=== PATIENT | female | born 1935 | race Caucasian/White ===

== ENCOUNTER → 2019-04-07 | Outpatient (CLI) | payer MEDICARE, OTHER, SELFPAY ==
[2019-04-07 14:57] LABS: Mucous, Urine 0 SEEN /hpf (<or=2+); Red Blood Cells-Urine 0 SEEN /hpf (0-5); Squamous Epithelial Cells - UA 0 SEEN /hpf (5-10)
[2019-04-07 17:30] LABS: Color, Urine Yellow (Yellow); Glucose, Dipstick Normal (Normal); Ketone-Dipstick Negative (Negative); Leukocyte Esterase-Dipstick 500 /ul (Negative); Nitrite-Dipstick Negative (Negative); Occult Blood-Urine 10 /ul (Negative); Protein-Dipstick Negative (Negative); Specific Gravity, Urine 1.015 (1.002-1.030); Urine Bilirubin Dipstick Negative (Negative); Urine Clarity Sl. Cloudy (Clear); Urine Urobilinogen Normal (Normal)
[2019-04-07 17:37] LABS: Bacteria 1+ /hpf (None Seen); White Blood Cells 50-100 SEEN /hpf (0-5)
== END | disposition home or self-care (01) ==
LOC: BFHLAB 14:55
PROVIDERS: Family Provider Family Medicine; PCP Family Medicine; Visit Provider Family Medicine
DX: R30.9 Painful micturition, unspecified (principal)
CPT/HCPCS: 81001; 87086; 87088; 87186

== ENCOUNTER → 2019-05-18 | Outpatient (CLI) | payer MEDICARE, OTHER, SELFPAY ==
[2015-05-24 20:11] VITALS: BMI 25.7
[2019-05-18 12:51] LABS: Absolute Lymphocyte Count 1.11 X10^3/uL (0.83-4.51); Absolute Neutrophil Count 2.9 X10^3/uL (2.0-7.7); Basophil# 0.03 X10^3/uL; Basophil% 0.7 % (0-1); Eosinophil# 0.12 X10^3/uL; Eosinophils% 2.6 % (0-5); Hematocrit 35.6 % (37-47); Hemoglobin 11.1 g/dL (12.0-15.0); Lymphocyte # 1.11 X10^3/ul (4.0); Lymphocyte % 24.4 % (19-41); Mean Corp Hgb Conc 31.2 g/dL (32-36); Mean Corpuscular Hgb 27.9 pg (27.0-32.0); Mean Corpuscular Volume 89.4 fL (81-99); Mean Platelet Vol. 11.4 fl (6.2-12.0); Monocyte# 0.41 X10^3/uL; NRBC Flagged by Analyzer 0 % (0-5); Neutrophil # 2.87 X10^3/uL (2.7-7.7); Neutrophil % 63.1 % (47-70); Platelet Count 218 K/mm3 (150-450); RBC Distribution Width CV 13.7 % (11.6-14.6); RBC Distribution Width SD 44.7 fl (35.1-43.9); Red Blood Count 3.98 M/mm3 (4.2-5.4); White Blood Count 4.6 K/mm3 (4.4-11.0)
[2019-05-18 13:06] LABS: ALB/GLOB Ratio 0.9 RATIO (0.9-2.4); AST(SGOT) 17 U/L (15-37); Alanine Aminotransfer ALT/SGPT 17 U/L (13-56); Albumin, Serum 3.4 g/dL (3.2-5.0); Alkaline Phosphatase 73 U/L (45-117); Anion Gap 5 (5-15); BUN 34 mg/dL (7-18); Calcium,Total 8.7 mg/dL (8.5-10.1); Chloride 104 mmol/L (98-107); Creatinine, Serum 1.31 mg/dL (0.55-1.02); EST Glomerular Filtration Rate 41 mL/min (>60); Est Glom Filt Rate - Afr Amer 50 mL/min (>60); Ferritin 40 ng/mL (8-252); Globulin 3.6 g/dL (2.2-4.2); Glucose 92 mg/dL (74-106); Iron 70 ug/dL (50-170); Potassium 4.3 mmol/L (3.5-5.1); Sodium Level 137 mmol/L (136-145)
== END | disposition home or self-care (01) ==
LOC: BFHLAB 09:58
PROVIDERS: Family Provider Family Medicine; PCP Family Medicine; Visit Provider Family Medicine
DX: D50.9 Iron deficiency anemia, unspecified (principal); N18.3 Chronic kidney disease, stage 3 (moderate)
CPT/HCPCS: 36415; 80053; 82728; 83540; 85025

== ENCOUNTER → 2020-11-11 14:44 | Outpatient (CLI) | payer MEDICARE, OTHER, SELFPAY ==
[2015-05-24 20:11] VITALS: BMI 25.7
--- NOTE | 2020-11-11 14:50 | RAD_ITS ---
STUDY: X-RAY - UNILATERAL RIBS ( RIGHT ) WITH CHEST REASON FOR EXAM: Female, 85 years old. Pt fell yesterday, right lateral lower rib pain TECHNIQUE - RIBS: 2 view(s) of the ribs. TECHNIQUE - CHEST: Single PA view of the chest. COMPARISON: Comparison is made with prior study dated 09/23/2014. FINDINGS - RIBS: Normal visualized ribs without a demonstrated fracture. FINDINGS - CHEST: Hyperinflation. The lungs are clear. There is no demonstrated pleural abnormality. Normal size heart. Normal mediastinum and yas. Normal visualized pulmonary arteries. There is atherosclerotic calcification of the aortic arch with tortuosity. There are diffuse degenerative changes of the visualized thoracic spine. Dextroscoliosis. Normal visualized ribs, clavicles, and shoulders. There is no demonstrated abnormality of the visualized soft tissue structures of the upper abdomen. RAD/Ribs Uni Min 3V w/PA Chest IMPRESSION: RIBS: Normal x-ray examination of the ribs. CHEST: Hyperinflation. The lungs are clear. Electronically Signed: Keagan Raymundo MD at 15:26 EST , Service support ,
--- NOTE | 2020-11-11 14:50 | RAD_ITS ---
STUDY: X-RAY - LEFT WRIST REASON FOR EXAM: Female, 85 years old. Pt fell yesterday, left wrist pain swelling TECHNIQUE: 3 view(s) of the wrist were obtained. COMPARISON: None. FINDINGS: Normal visualized distal radius and ulna. Normal radiocarpal articulation. Normal distal radioulnar articulation. Normal carpal bones. Normal carpal articulations. Normal carpometacarpal articulation of the thumb. Normal second through fifth carpometacarpal articulations. 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 Soft tissue swelling. RAD/Wrist min 3 Views IMPRESSION: Soft tissue swelling. Electronically Signed: Keagan Raymundo MD at 15:22 EST , Service support ,
--- NOTE | 2020-11-11 14:50 | RAD_ITS ---
STUDY: X-RAY - LEFT HAND REASON FOR EXAM: Female, 85 years old. Pt fell yesterday, swelling and redness left hand -- unable to remove ring TECHNIQUE: 3 view(s) of the hand. COMPARISON: None. FINDINGS: Normal radiocarpal articulation. Normal distal radioulnar joint. Normal visualized carpal bones. Normal carpal articulations Normal carpometacarpal articulation of the thumb. Normal second through fifth carpometacarpal joints. 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 Normal metacarpophalangeal joint of the thumb. Normal interphalangeal joint of the thumb. Normal proximal and distal phalanges of the thumb. Normal metacarpophalangeal joints of the second through fifth fingers. Normal proximal and distal interphalangeal joints of the second through fifth fingers. Normal phalanges of the second through fifth fingers. Dorsal soft tissue swelling. No evidence of fracture or dislocation. RAD/Hand Min 3 Views IMPRESSION: Dorsal soft tissue swelling. 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 Electronically Signed: Keagan Raymundo MD at 15:21 EST , Service support ,
== END ==
PROVIDERS: PCP Family Medicine; Referring Provider Family Medicine; Visit Provider Family Medicine
DX: S63.502A Unspecified sprain of left wrist, initial encounter (principal); R07.81 Pleurodynia; M79.642 Pain in left hand
CPT/HCPCS: 71101; 73110; 73130

== ENCOUNTER → 2020-11-21 11:01 | Outpatient (CLI) | payer MEDICARE, OTHER, SELFPAY ==
[2020-11-21 12:23] LABS: Absolute Lymphocyte Count 1.21 X10^3/uL (0.83-4.51); Absolute Neutrophil Count 5.7 X10^3/uL (2.0-7.7); Basophil# 0.02 X10^3/uL; Basophil% 0.3 % (0-1); Eosinophil# 0.03 X10^3/uL; Eosinophils% 0.4 % (0-5); Hematocrit 31.8 % (37-47); Hemoglobin 9.6 g/dL (12.0-15.0); Lymphocyte # 1.21 X10^3/ul (4.0); Lymphocyte % 15.3 % (19-41); Mean Corp Hgb Conc 30.2 g/dL (32-36); Mean Corpuscular Hgb 27.4 pg (27.0-32.0); Mean Corpuscular Volume 90.9 fL (81-99); Mean Platelet Vol. 10.9 fl (6.2-12.0); Monocyte% 11.3 % (0-10); NRBC Flagged by Analyzer 0 % (0-5); Neutrophil # 5.72 X10^3/uL (2.7-7.7); Neutrophil % 72.1 % (47-70); Platelet Count 244 K/mm3 (150-450); RBC Distribution Width CV 13.6 % (11.6-14.6); RBC Distribution Width SD 45.5 fl (35.1-43.9); White Blood Count 7.9 K/mm3 (4.4-11.0)
[2020-11-21 13:09] LABS: ALB/GLOB Ratio 0.7 RATIO (0.9-2.4); AST(SGOT) 11 U/L (15-37); Alanine Aminotransfer ALT/SGPT 18 U/L (13-56); Alkaline Phosphatase 99 U/L (45-117); Anion Gap 9 (5-15); BUN 36 mg/dL (7-18); BUN/Creat Ratio 22.5 RATIO (10-20); Calcium,Total 8.7 mg/dL (8.5-10.1); Chloride 97 mmol/L (98-107); EST Glomerular Filtration Rate 33 mL/min (>60); Est Glom Filt Rate - Afr Amer 39 mL/min (>60); Globulin 4.1 g/dL (2.2-4.2); Glucose 118 mg/dL (74-106); Protein, Total 7.1 g/dL (6.4-8.2); Sodium Level 133 mmol/L (136-145)
[2020-11-21 13:31] LABS: Bacteria 0 SEEN /hpf (None Seen); Mucous, Urine 0 SEEN /hpf (<or=2+); White Blood Cells 0 SEEN /hpf (0-5)
[2020-11-21 14:57] LABS: Color, Urine Yellow (Yellow); Glucose, Dipstick Normal (Normal); Ketone-Dipstick Negative (Negative); Leukocyte Esterase-Dipstick Negative /ul (Negative); Nitrite-Dipstick Negative (Negative); Occult Blood-Urine 10 /ul (Negative); Protein-Dipstick Negative (Negative); Urine Bilirubin Dipstick Negative (Negative); Urine Clarity Clear (Clear); Urine Urobilinogen Normal (Normal)
[2020-11-21 15:11] LABS: Red Blood Cells-Urine 0-5 SEEN /hpf (0-5); Squamous Epithelial Cells - UA 0-5 SEEN /hpf (5-10)
== END ==
PROVIDERS: PCP Family Medicine; Visit Provider Family Medicine
DX: R50.9 Fever, unspecified (principal)
CPT/HCPCS: 36415; 80053; 81001; 85025; 86140; 87086

== ENCOUNTER → 2020-11-22 10:12 | Outpatient (CLI) | payer MEDICARE, OTHER, SELFPAY ==
--- NOTE | 2020-11-22 10:16 | CT_ITS ---
STUDY: CT ABDOMEN AND PELVIS WITH CONTRAST REASON FOR EXAM: Female, 85 years old. FEVER OF UNKNOWN ETIOLOGY/R FLANK/ABD PAIN/CRP GREATER THAN 100 RADIATION DOSAGE (If Supplied By Facility): CTDIvol = ( 7.86 ) mGy, DLP = ( 248.08 ) mGycm TECHNIQUE: Transaxial images were obtained from the dome of the diaphragm to the symphysis pubis with oral contrast. Oral and amp;amp; IV Readi-CAT and amp;amp; 100mL Isovue-300 was administered. Sagittal and coronal images were reconstructed. Individualized dose optimization techniques were used for this CT. COMPARISON: Comparison is made with prior study dated 06/02/2015. FINDINGS: The visualized lung bases are unremarkable. Coronary artery calcification. There is a 2.3 cm x 1.5 cm cyst in the anterior medial aspect of the right lobe of the liver. A subcentimeter cyst is also seen in the midportion of the right lobe. Mildly dilated central intrahepatic biliary ducts. This is unchanged. Normal gallbladder and extrahepatic biliary system. Normal spleen. There is diffuse atrophy of the pancreas. Normal bilateral adrenal glands. Normal right kidney. Normal left kidney. Normal visualized stomach. Normal small intestine. There are multiple colonic diverticula consistent with diverticulosis. Large amount of fecal material is seen in the colon. Sigmoid diverticulosis. There is non-visualization of the appendix. There is diffuse atherosclerotic calcification of the abdominal aorta, without a demonstrated aneurysm. Normal inferior vena cava. Normal retroperitoneum. Normal urinary bladder. Small bilateral inguinal hernias containing fat. Disc space narrowing and degeneration at the L4-L5 level. CT/Abdomen/Pelvis WITH Contrast IMPRESSION: Hepatic cysts. Stable mildly dilated central intrahepatic biliary ducts. Sigmoid diverticulosis. Electronically Signed: Keagan Raymundo MD at 11:09 EST , Service support ,
== END ==
PROVIDERS: PCP Family Medicine; Referring Provider Family Medicine; Visit Provider Family Medicine
DX: R10.9 Unspecified abdominal pain (principal); R50.9 Fever, unspecified
CPT/HCPCS: 74177; Q9967

== ENCOUNTER → 2020-11-30 07:55 | Outpatient (CLI) | payer MEDICARE, OTHER, SELFPAY ==
[2020-11-30 10:27] LABS: Absolute Lymphocyte Count 1.66 X10^3/uL (0.83-4.51); Basophil# 0.04 X10^3/uL; Basophil% 0.6 % (0-1); Eosinophil# 0.06 X10^3/uL; Eosinophils% 0.9 % (0-5); Hematocrit 35.6 % (37-47); Hemoglobin 10.7 g/dL (12.0-15.0); Lymphocyte # 1.66 X10^3/ul (4.0); Lymphocyte % 26.2 % (19-41); Mean Corp Hgb Conc 30.1 g/dL (32-36); Mean Corpuscular Hgb 26.9 pg (27.0-32.0); Mean Corpuscular Volume 89.4 fL (81-99); Monocyte# 0.48 X10^3/uL; Monocyte% 7.6 % (0-10); NRBC Flagged by Analyzer 0 % (0-5); Neutrophil # 4.04 X10^3/uL (2.7-7.7); Neutrophil % 63.8 % (47-70); Platelet Count 405 K/mm3 (150-450); RBC Distribution Width CV 13.2 % (11.6-14.6); RBC Distribution Width SD 43.6 fl (35.1-43.9); Red Blood Count 3.98 M/mm3 (4.2-5.4); White Blood Count 6.3 K/mm3 (4.4-11.0)
[2020-11-30 10:37] LABS: CRP 9.26 mg/L (0.0-3.0)
[2020-11-30 10:58] LABS: Erythrocyte Sedimentation Rate 20 mm/hr (0-30)
[2020-12-01 16:08] LABS: ANTINUCLEAR ANTIBODIES DIRECT Positive (Negative); Anti-Centromere B Ab <0.2 AI (0.0-0.9); Anti-Chromatin 0.3 AI (0.0-0.9); Anti-Jo <0.2 AI (0.0-0.9); Anti-Scleroderma-70 AB <0.2 AI (0.0-0.9); RNP Ab 0.4 AI (0.0-0.9); SJOGREN'S Anti-SS-A test < 0.2 AI (0.0-0.9); SJOGREN'S Anti-SS-B test < 0.2 AI (0.0-0.9); Smith Ab <0.2 AI (0.0-0.9)
[2020-12-01 16:46] LABS: Anti-dsDNA Ab 26 IU/mL (0-9)
== END ==
PROVIDERS: PCP Family Medicine; Visit Provider Family Medicine
DX: R10.9 Unspecified abdominal pain (principal); R79.82 Elevated C-reactive protein (CRP)
CPT/HCPCS: 36415; 85025; 85652; 86038; 86140; 86225; 86235

== ENCOUNTER 2021-03-31 16:18 | Emergency (ER) | payer MEDICARE, OTHER, SELFPAY ==
[2021-03-31 16:18] VITALS: BP 171/76; PULSE 92; RESP 18; TEMP 36.8; O2SAT 97; BMI 22.4
--- NOTE | 2021-03-31 17:31 | EDS_ITS ---
HPI History of Present Illness Chief Complaint: Head Injury Detail of Chief Complaint: Scalp laceration Informant: patient Onset/Context/Timing Onset: Hours Mechanism/Context: Blunt Injury and Fall Location: Right parietal region Current Severity: Mild Maximum Severity: Moderate Worsened by: Bleeding due to cut Relieved by: Pressure Associated Symptoms Associated Symptoms: Negative for Parasthesias, Weakness, Loss of function, Inability to ambulate, Loss of consciousness and Amnesia Narrative Narrative: Patient is an elderly woman on no antiplatelet or anticoagulant. She states she was talking to her daughter. She got up from the chair turned lost her balance hit the lamp and then fell onto the fireplace. She sustained a laceration right side of her head. She denies loss of conscious. She not amnestic. She denies visual, ocular auditory symptoms. She denies blood from her nose or ears. She denies dental pain. She denies malocclusion. She denies neck pain. Denies paresthesia, anesthesia or motor weakness. She denied cardiac respiratory symptoms. She denies black or maroon-colored stool. Tetanus is unknown. Tetanus Immunization: Unknown Prior similar symptoms: No Recent Illness/Hospitalization: No PFSH PFS Medical History IBS (irritable bowel syndrome) Home Medications calcium carbonate [Oyster Shell Calcium 500] 500 mg PO DAILY@0800 09/23/14 [History Last Taken 09/22/14] loperamide 2 mg PO Q4H PRN PRN 09/23/14 [History Last Taken 09/23/14] vit A,C and R-qhnjbc-wjwyizxm [Ocuvite with Lutein] 1 ea PO DAILY 09/23/14 [History Last Taken 09/22/14] cholecalciferol (vitamin D3) [Vitamin D3] 2,000 unit PO DAILY 05/19/15 [History Last Taken Unknown] vitamins E4-I9-A6-G03-dvphsmco [B-Complex With B-12] 1 tab PO DAILY 05/19/15 [History Last Taken Unknown] famotidine 20 mg PO BID tablet 05/24/15 [Rx Last Taken Unknown] doxazosin 4 mg PO QHS #30 tablet 06/08/15 [Rx Last Taken Unknown] hydrocortisone [Proctozone-HC] 1 applic RECTAL TID PRN PRN #0 tube 06/08/15 [Rx Last Taken Unknown] iron aspgl,ps complex-vit C-sa [Ferrex 150 Plus] 150 mg PO DAILYCM #30 capsule 06/08/15 [Rx Last Taken Unknown] ondansetron 4 mg PO Q8H PRN PRN #10 tablet 06/08/15 [Rx Last Taken Unknown] tramadol 50 mg PO Q6H PRN PRN #20 tablet 06/08/15 [Rx Last Taken Unknown] Allergy/AdvReac Type Severity Reaction Status Date / Time codeine Allergy Hives Verified 03/31/21 16:21 Social History (Updated 03/31/21 @ 17:[address] Timothy Matthews MD) household members: none Smoking Status: Never smoker alcohol intake: current alcohol intake frequency: holidays/special occasions only substance use type: does not use ROS ROS ED Constitutional Constitutional ED: Denies chills, fever(s), subjective or sweats Eyes Eyes: Denies blurry vision or change in vision ENT ENT ED: Denies ear pain, rhinorrhea or sore throat Cardiovascular Cardiovascular: Denies chest pain, palpitations or paroxysmal nocturnal dyspnea Respiratory/Chest Respiratory/Chest: Denies dyspnea, dyspnea on exertion or paroxysmal nocturnal dyspnea Gastrointestinal Gastrointestinal: Denies abdominal pain, melena, nausea or vomiting Genitourinary Genitourinary ED: Denies hematuria Musculoskeletal Musculoskeletal: Denies arthralgias, back pain, myalgias or neck pain Integumentary Denies abscess, Abrasions or rash Neurologic Neurologic: Denies headache(s) or weakness Psychiatric Psychiatric: Denies anxiety or depression Endocrine Endocrinology: Denies polydipsia, polyphagia or polyuria Hematologic/Lymphatic Hematologic/Lymphatic: Denies easy bleeding or easy bruising Allergic/Immunologic Allergic/Immunologic ED: Denies urticaria EXAM Physical Exam Const Vital Signs: 03/31/21 16:18 03/31/21 17:14 Temperature 98.2 F Temperature Source Temporal Pulse Rate 92 Respiratory Rate 18 Respiratory Effort Normal Non-Labored Blood Pressure 171/76 H Blood Pressure Mean 107 Pulse Ox 97 Oxygen Delivery Method Room Air Positive well nourished and well developed General Appearance ED: well developed and NAD HEENT Reports TM's clear HEENT Narrative: There is no septal deviation hematoma. There is no clinical signs of basilar skull fracture. trauma and tenderness Nose: septum abnormal Tympanic Membrane ED: Yes TM's clear Eyes PERRL and EOMs intact bilaterally General Eye ED: Yes other Other Details: There is no subconjunctival hemorrhage. There is no hyperesthesia of the infraorbital nerve. There is no step-off with palpation of the infraorbital rim. There is no evidence of entrapment and she denies diplopia. Neck full ROM General: Negative for tenderness Chest Wall inspection of chest normal Resp normal respiratory effort and clear to auscultation bilaterally Cardio regular rhythm, S1 normal heart sound, S2 normal heart sound and no murmurs Rate: regular rate GI normal to inspection, nondistended, normoactive bowel sounds and non-tender Palpation: soft Back/Spine normal to inspection and no thoracic nor lumbar tenderness Extremity normal to inspection and full ROM Neuro oriented x3, CN's II-XII intact bilaterally and no sensory deficits noted Neuro Narrative: There is no clonus or Babinski sign. DTRs are symmetric at the bicep, brachialis, triceps, patella and ankle 1-2+. [place] Coma Scale: document GCS findings Spontaneous Obeys Commands Oriented 15 Sensorium / Orientation: alert Motor Exam: strength 5/5 throughout Psych mental status grossly normal and thought process normal Skin Wounds: wounds noted PROC Procedures Other Procedures Procedure(s): Scalp laceration Patient was anesthetized 1% lidocaine by local infiltration. The length of the laceration is 3.0 cm. The wound was cleansed. 5 nancy were placed. There was no complications. Discharged home with appropriate home-going instructions. MDM MDM MDM Narrative Medical decision making narrative: Based on the Alexander CT head rule and Nexus criteria imaging was not obtained. Patient's tetanus was updated. The wound was anesthetized and will be closed using staple gun. Please read procedure note Discharge Plan Triage Chief Complaint: Head Injury ED Provider: Timothy Matthews Dx/Rx/DC Orders Clinical Impression: Laceration of scalp, Injury due to fall Instructions: Preventing Falls How to ..., ED Laceration: All Closures Prescriptions: No Action loperamide 2 MG capsule 2 mg PO Q4H PRN PRN (Reason: Diarrhea) RF: 0 calcium carbonate [Oyster Shell Calcium 500] 500 MG tablet 500 mg PO DAILY@0800 RF: 0 vit A,C and J-aqgsbx-drvoraqh [Ocuvite with Lutein] 1 EACH tablet 1 ea PO DAILY RF: 0 cholecalciferol (vitamin D3) [Vitamin D3] 1,000 UNIT tablet 2,000 unit PO DAILY RF: 0 vitamins B4-R6-P0-A53-mlxywqop [B-Complex With B-12] 1 EACH tablet 1 tab PO DAILY RF: 0 famotidine 20 MG tablet 20 mg PO BID RF: 0 tramadol 50 MG tablet 50 mg PO Q6H PRN PRN (Reason: MODERATE TO SEVERE PAIN) Qty: 20 RF: 0 hydrocortisone [Proctozone-HC] 1 APPLIC Tube 1 applic RECTAL TID PRN PRN (Reason: hemmrhoids) Qty: 0 RF: 0 ondansetron 4 MG tablet 4 mg PO Q8H PRN PRN (Reason: Nausea) Qty: 10 RF: 0 iron aspgl,ps complex-vit C-sa [Ferrex 150 Plus] 150 MG capsule 150 mg PO DAILYCM Qty: 30 RF: 0 doxazosin 4 MG tablet 4 mg PO QHS Qty: 30 RF: 0 Primary Care Provider: Vivek Godinez Referrals: Vivek Godinez DO [Primary Care Provider] - 10 Day for suture removal Activity Restrictions/Additional Instructions: 1. Clean laceration with peroxide and Q-tip 3 times a day 2. Apply bacitracin ointment after cleaning with peroxide Disposition Disposition: Home, Self Care
[2021-03-31] MEDS: Diphth,Pertuss(Acell),Tet Vac 0.5 ML Vial IM (20:04)
[2021-03-31] MEDS: Lidocaine 1% (20 ml mdv) 20 ML Vial INFILT (20:04)
[2021-03-31 20:05] VITALS: RESP 16
== END 2021-03-31 20:06 | disposition home or self-care (01) ==
PROVIDERS: Emergency Provider Emergency Medicine; PCP Family Medicine
DX: S01.01XA Laceration without foreign body of scalp, initial encounter (principal); Z23 Encounter for immunization; W26.8XXA Contact with other sharp object(s), not elsewhere classified, initial encounter; Y93.89 Activity, other specified; Y92.009 Unspecified place in unspecified non-institutional (private) residence as the place of occurrence of the external cause; Y99.8 Other external cause status
CPT/HCPCS: 12002; 90471; 90715; 99283

== ENCOUNTER → 2023-02-16 | Outpatient (CLI) | payer MEDICARE, OTHER, SELFPAY ==
--- NOTE | 2023-02-16 08:38 | MRI_ITS ---
STUDY: MRI BRAIN WITHOUT CONTRAST REASON FOR EXAM: Female, 87 years old. Dementia; urinary incontinence; gait disorder TECHNIQUE: Standardized multiplanar fat and water weighted pulse sequences were obtained. COMPARISON: No relevant prior imaging available for comparison. Craniocervical junction is normal. Normal pituitary gland. Normal clivus. Normal developmental midline anatomy. Normal dural venous sinus flow voids. There is no restricted diffusion identified to suggest acute intracranial infarction. This patient has mild to moderate cortical and central involutional change. Extensive periventricular hyperintensity on FLAIR/T2. Posterior fossa and brainstem show no significant abnormality. There is no intra or extra axial fluid collection identified. No abnormal areas of high T1 signal are present. On susceptibility weighted imaging this patient has no evidence of significant hemosiderin deposition within the brain parenchyma. The visualized paranasal sinuses are clear. Intact maxillary sinuses. Ethmoid and frontal sinuses are clear. MRI/Brain without Contrast IMPRESSION: No intracranial mass, hemorrhage, or acute territorial infarct. Bilateral relatively symmetric white matter changes which could be as result of chronic small vessel microangiopathy. Involutional change. Electronically Signed: Damian Mccall MD at 23:20 EDT ,
== END | disposition home or self-care (01) ==
LOC: MRI 08:35
PROVIDERS: PCP Family Medicine; Referring Provider Psychiatry & Neurology Neurology; Visit Provider Psychiatry & Neurology Neurology
DX: F03.90 Unspecified dementia, unspecified severity, without behavioral disturbance, psychotic disturbance, mood disturbance, and anxiety (principal); R32 Unspecified urinary incontinence; R26.9 Unspecified abnormalities of gait and mobility
CPT/HCPCS: 70551

== ENCOUNTER 2023-02-18 12:47 | Emergency (ER) | payer MEDICARE, OTHER, SELFPAY ==
[2023-02-18 12:48] VITALS: BP 149/68; PULSE 85; RESP 16; TEMP 36.1; O2SAT 100
--- NOTE | 2023-02-18 12:53 | EX.ED.DYSGE1 ---
HPI History of Present Illness Chief Complaint: Diarrhea [facility] Medical History (Updated 02/18/23 @ 14:[address] Yovani Reed, DO) IBS (irritable bowel syndrome) Home Medications calcium carbonate 500 mg calcium (1,250 mg) tablet (Oyster Shell Calcium 500) 500 mg PO DAILY@0800 09/23/14 [History Last Taken 09/22/14] loperamide 2 mg capsule 2 mg PO Q4H PRN PRN Diarrhea 09/23/14 [History Last Taken 09/23/14] vit A 300 mcg-C 200 mg-E 27 mg-lutein 2 mg and minerals tablet (Ocuvite with Lutein) 1 ea PO DAILY 09/23/14 [History Last Taken 09/22/14] cholecalciferol (vitamin D3) 25 mcg (1,000 unit) tablet (Vitamin D3) 2,000 unit PO DAILY 05/19/15 [History Last Taken Unknown] vitamins B1 2.5 mg-B2 2.5 mg-niacin 5 mg-B12 100 mcg-protease tablet (B-Complex With B-12) 1 tab PO DAILY 05/19/15 [History Last Taken Unknown] famotidine 20 mg tablet 20 mg PO BID 05/24/15 [Rx Last Taken Unknown] doxazosin 4 mg tablet 4 mg PO QHS URINARY RETENTION ##30 06/08/15 [Rx Last Taken Unknown] hydrocortisone 2.5 % topical cream with perineal applicator (Proctozone-HC) 1 applic RECTAL TID PRN PRN hemmrhoids ##0 06/08/15 [Rx Last Taken Unknown] iron aspgl and ps cmplx 150 mg-vit C 50 mg-succinic acid 50 mg capsule (Ferrex) 150 mg PO DAILYCM ##30 06/08/15 [Rx Last Taken Unknown] ondansetron 4 mg disintegrating tablet 4 mg PO Q8H PRN PRN Nausea ##10 06/08/15 [Rx Last Taken Unknown] tramadol 50 mg tablet 50 mg PO Q6H PRN PRN MODERATE TO SEVERE PAIN ##20 06/08/15 [Rx Last Taken Unknown] memantine 14 mg capsule sprinkle,extended release 24hr (Namenda XR) 14 mg PO DAILY #30 ea 02/05/23 [Rx Last Taken Unknown] Allergy/AdvReac Type Severity Reaction Status Date / Time codeine Allergy Unknown Hives Verified 02/18/23 12:48 Family History Sister Breast cancer Ovarian cancer Brother Heart disease Surgical History (Updated 02/05/23 @ 09:23 by Christi Hale) H/O: knee surgery History of hysterectomy Social History (Updated 02/05/23 @ 09:14 by Christi Hale) household members: none Smoking Status: Never smoker second hand exposure: No alcohol intake: never substance use type: does not use what type of physical activity do you participate in: none seatbelt use: always EXAM Physical Exam Const Vital Signs: 02/18/23 12:48 Temperature 97 F L Temperature Source Temporal Pulse Rate 85 Respiratory Rate 16 Blood Pressure 149/68 H Blood Pressure Mean 95 Pulse Ox 100 Oxygen Delivery Method Room Air MDM [facility] MDM Narrative Medical decision making narrative: HISTORY OF PRESENT ILLNESS: 87-year-old female here with concern for diarrhea. Notes 3 episodes of loose stools prior to arrival. Denies abdominal pain. Denies recent antibiotics or hospitalizations. Denies any chest pain, headache, palpitations or shortness of breath. She denies any urinary complaints, vaginal bleeding, melena, hematochezia. REVIEW OF SYSTEMS: Pertinent positives: Diarrhea Pertinent negatives: Abdominal pain PHYSICAL EXAM: Nursing triage notes reviewed, Vital signs reviewed Constitutional: please see mdm HENT: MMM Eyes: Pupils equal round and reactive to light, Extraocular muscles intact Neck: No stridor, no JVD, full neck ROM Lungs: Clear to auscultation, No wheezing or rales. No increased work of breathing, no conversational dyspnea, no accessory muscle use, no nasal flaring. No respiratory distress noted Heart: Regular rate and rhythm, No murmurs, No rubs and No gallops, 2+ distal pulses (radial, femoral, posterior tibial) in all extremities Abdomen: Soft, there is no tenderness, rigidity, rebound or guarding, no obvious peritoneal signs, no palpable pulsatile abdominal masses, no auscultated abdominal bruit : No CVAT Extremities: No edema Neuro: No focal neurological deficits, cranial nerves II through XII intact, 5/5 strength in all extremities. Intact sensation to light touch in all extremities, 2+ reflexes bilateral patella tendons. Normal gait. No ataxia. Skin: No rash or lesions noted MEDICAL DECISION MAKING: Chief Complaint: Diarrhea External records reviewed: Factors affecting care: IBS, atrial fibrillation, CKD, C. difficile Social determinants of health: Elderly History obtained from others: Consults: ALL IMAGES HAVE BEEN PERSONALLY REVIEWED AND INTERPRETED BY MYSELF. MDM Narrative: Patient was hemodynamically stable, afebrile, nontoxic-appearing. Abdominal exam was benign I considered the following differential diagnosis: Dehydration, electrolyte disturbance, colitis, C. difficile With no recent antibiotics or hospitalizations have a low suspicion for C. difficile. Without objective abdominal pain it is unlikely patient suffering from colitis or other surgical abdominal process. Did obtain labs rule out dehydration, pancreas abnormalities, electrolyte disturbance. I gave the patient 1 L normal saline for rehydration. Labs were remarkable for mild renal insufficiency but no obvious acute kidney injury or significant electrolyte abnormality. Patient is likely suffering from an exacerbation of her IBS. There is no indication for admission at this time. She was given gastroenterology follow-up and instructions to maintain adequate fluid hydration through body armor, Pedialyte or other electrolyte containing fluid. She was given strict return precautions and follow-up instructions. The patient expressed understanding agreed to return to the ED if her symptoms change or worsen or if she cannot tolerate fluids by mouth. Total critical care time today provided was at least 0 minutes. This excludes separately billable procedures. There was a high probability of clinically significant/life threatening deterioration in the patient's condition which required my urgent intervention. Shared decision making: I will have a discussion with the patient and or visitors regarding risk/benefits of further testing or admission. They will be made aware of of the risk/benefits inherent in this decision they will be given the opportunity to voice understanding. Lab Data Attestation: I reviewed the patient's lab results. Lab results narrative: EKG with rate controlled atrial fibrillation, left axis deviation, prolonged QT, no obvious STEMI or ischemic changes no hyperkalemic changes CBC with no leukocytosis, mild anemia, no thrombocytopenia BMP without significant [place] abnormalities, no anion gap to suggest endorgan hypoperfusion, noted mild renal insufficiency on baseline CKD LFTs without evidence hepatobiliary obstruction Lipase is wnl indicating no pancreatic inflammation. Labs: Laboratory Results - last 24 hr 02/18/23 02/18/23 13:28 13:28 WBC 4.3 L RBC 3.59 L Hgb 10.6 L Hct 33.6 L MCV 93.6 MCH 29.5 MCHC 31.5 L RDW Std Deviation 48.1 H RDW Coeff of Hanh 14.0 Plt Count 201 MPV 10.9 Immature Gran % (Auto) 0.500 Neut % (Auto) 62.8 Lymph % (Auto) 25.4 [place] % (Auto) 8.8 Eos % (Auto) 1.6 Baso % (Auto) 0.9 Absolute Neuts (auto) 2.7 Absolute Lymphs (auto) 1.10 Nucleated RBC % 0 Sodium 144 Potassium 4.2 Chloride 112 H Carbon Dioxide 21.0 Anion Gap 11 BUN 59 H Creatinine 1.81 H Estim Creat Clear Calc 16.52 Est GFR (MDRD) Af Amer 34 L Est GFR (MDRD) Non-Af 28 L BUN/Creatinine Ratio 32.6 H Glucose 99 Calcium 8.3 L Total Bilirubin 0.30 AST 23 ALT 29 Alkaline Phosphatase 93 Total Protein 6.5 Albumin 2.9 L Globulin 3.6 Albumin/Globulin Ratio 0.8 L Lipase 56 Discharge Plan Triage Chief Complaint: Diarrhea ED Provider: Yovani Reed Dx/Rx/DC Orders Clinical Impression: Diarrhea, Acute renal insufficiency Instructions: ED Diarrhea, Unknown Cause Prescriptions: No Action memantine [Namenda XR] 14 mg capsule,sprinkle,ER 24hr 14 mg PO DAILY Qty: 30 5RF Rx Instructions: Begin after completing 1 week course of memantine ER 7 mg daily loperamide 2 MG capsule 2 mg PO Q4H PRN PRN (Reason: Diarrhea) Label Comments: Diarrhea calcium carbonate [Oyster Shell Calcium 500] 500 MG tablet 500 mg PO DAILY@0800 Label Comments: Calcium supplement vit A,C and J-[id number]-tbgbrvko [Ocuvite with Lutein] 1 EACH tablet 1 ea PO DAILY Label Comments: Supplement cholecalciferol (vitamin D3) [Vitamin D3] 1,000 UNIT tablet 2,000 unit PO DAILY vitamins W3-P5-F4-Q62-xcyewxtr [B-Complex With B-12] 1 EACH tablet 1 tab PO DAILY famotidine 20 MG tablet 20 mg PO BID 0RF tramadol 50 MG tablet 50 mg PO Q6H PRN PRN (Reason: MODERATE TO SEVERE PAIN) Qty: 20 0RF hydrocortisone [Proctozone-HC] 1 APPLIC cream with perineal applicator 1 applic RECTAL TID PRN PRN (Reason: hemmrhoids) Qty: 0 0RF ondansetron 4 MG tablet 4 mg PO Q8H PRN PRN (Reason: Nausea) Qty: 10 0RF iron aspgl,ps complex-vit C-sa [Ferrex 150 Plus] 150 MG capsule 150 mg PO DAILYCM Qty: 30 0RF doxazosin 4 MG tablet 4 mg PO QHS Qty: 30 0RF Primary Care Provider: Vivek Godinez Referrals: Vivek Godinez DO [Primary Care Provider] - Activity Restrictions/Additional Instructions: Thank you for trusting us with your care today! Please use [id number]-fps-[id number] antidiarrheals sparingly. Please do not use these more than prescribed as it can lead to abnormalities in your heart rhythm as well as life-limiting side effects. Please return to the emergency department if your symptoms change or worsen. Please follow with your primary care physician for further outpatient evaluation and management. Disposition Disposition: Home, Self Care
[2023-02-18 13:31] VITALS: BMI 20.4
[2023-02-18] MEDS: 0.9% Normal Saline 1,000 ML 999 ML IV (13:32)
[2023-02-18 13:41] LABS: Absolute Neutrophil Count 2.7 X10^3/uL (2.0-7.7); Basophil# 0.04 X10^3/uL; Basophil% 0.9 % (0-1); Eosinophil# 0.07 X10^3/uL; Eosinophils% 1.6 % (0-5); Hematocrit 33.6 % (37-47); Hemoglobin 10.6 g/dL (12.0-15.0); Lymphocyte % 25.4 % (19-41); Mean Corp Hgb Conc 31.5 g/dL (32-36); Mean Corpuscular Hgb 29.5 pg (27.0-32.0); Mean Corpuscular Volume 93.6 fL (81-99); Mean Platelet Vol. 10.9 fl (6.2-12.0); Monocyte# 0.38 X10^3/uL; Monocyte% 8.8 % (0-10); NRBC Flagged by Analyzer 0 % (0-5); Neutrophil # 2.72 X10^3/uL (2.7-7.7); Neutrophil % 62.8 % (47-70); Platelet Count 201 K/mm3 (150-450); RBC Distribution Width SD 48.1 fl (35.1-43.9); Red Blood Count 3.59 M/mm3 (4.2-5.4); White Blood Count 4.3 K/mm3 (4.4-11.0)
[2023-02-18 14:00] VITALS: PULSE 93; RESP 19
[2023-02-18 14:10] LABS: ALB/GLOB Ratio 0.8 RATIO (0.9-2.4); AST(SGOT) 23 U/L (15-37); Alanine Aminotransfer ALT/SGPT 29 U/L (13-56); Albumin, Serum 2.9 g/dL (3.2-5.0); Alkaline Phosphatase 93 U/L (45-117); Anion Gap 11 (5-15); BUN 59 mg/dL (7-18); BUN/Creat Ratio 32.6 RATIO (10-20); Calcium,Total 8.3 mg/dL (8.5-10.1); Chloride 112 mmol/L (98-107); Creatinine, Serum 1.81 mg/dL (0.55-1.02); EST Glomerular Filtration Rate 28 mL/min (>60); Est Glom Filt Rate - Afr Amer 34 mL/min (>60); Estimated Creatinine Clearance 16.52 ml/min; Globulin 3.6 g/dL (2.2-4.2); Glucose 99 mg/dL (74-106); Lipase 56 U/L (13-75); Potassium 4.2 mmol/L (3.5-5.1); Protein, Total 6.5 g/dL (6.4-8.2); Sodium Level 144 mmol/L (136-145)
== END 2023-02-18 14:59 | disposition home or self-care (01) ==
PROVIDERS: Emergency Provider Emergency Medicine; PCP Family Medicine; Visit Provider Emergency Medicine
DX: K58.0 Irritable bowel syndrome with diarrhea (principal); I48.91 Unspecified atrial fibrillation; N18.9 Chronic kidney disease, unspecified
CPT/HCPCS: 80053; 83690; 85025; 93005; 96360; 99283; J7030; A4216

== ENCOUNTER → 2023-02-21 | Outpatient (CLI) | payer MEDICARE, OTHER, SELFPAY | END | disposition home or self-care (01) | LOC: LABSPEC 13:40 | PROVIDERS: PCP Family Medicine; Referring Provider Family Medicine; Visit Provider Family Medicine | DX: R19.7 Diarrhea, unspecified (principal); K92.1 Melena | CPT/HCPCS: 82274; 83630; 87177; 87209; 87506 ==

== ENCOUNTER 2023-02-28 18:39 | Emergency (ER) | payer MEDICARE, OTHER, SELFPAY ==
[2023-02-28 18:40] VITALS: BP 119/102; PULSE 95; RESP 18; TEMP 35.5; O2SAT 100; BMI 20.4
[2023-02-28 19:42] LABS: Absolute Lymphocyte Count 1.01 X10^3/uL (0.83-4.51); Absolute Neutrophil Count 4.6 X10^3/uL (2.0-7.7); Basophil# 0.02 X10^3/uL; Basophil% 0.3 % (0-1); Eosinophil# 0.09 X10^3/uL; Eosinophils% 1.4 % (0-5); Hematocrit 33.8 % (37-47); Hemoglobin 10.2 g/dL (12.0-15.0); Lymphocyte # 1.01 X10^3/ul (0.83-4.51); Lymphocyte % 15.7 % (19-41); Mean Corp Hgb Conc 30.2 g/dL (32-36); Mean Corpuscular Hgb 28.1 pg (27.0-32.0); Mean Corpuscular Volume 93.1 fL (81-99); Monocyte# 0.67 X10^3/uL; Monocyte% 10.4 % (0-10); NRBC Flagged by Analyzer 0 % (0-5); Neutrophil # 4.61 X10^3/uL (2.7-7.7); Neutrophil % 71.6 % (47-70); Platelet Count 193 K/mm3 (150-450); RBC Distribution Width CV 14.5 % (11.6-14.6); RBC Distribution Width SD 49.1 fl (35.1-43.9); Red Blood Count 3.63 M/mm3 (4.2-5.4); White Blood Count 6.4 K/mm3 (4.4-11.0)
[2023-02-28] MEDS: 0.9% Normal Saline 1,000 ML 1000 ML IV (19:50)
[2023-02-28 20:02] LABS: ALB/GLOB Ratio 0.8 RATIO (0.9-2.4); AST(SGOT) 17 U/L (15-37); Alanine Aminotransfer ALT/SGPT 20 U/L (13-56); Albumin, Serum 2.8 g/dL (3.2-5.0); Alkaline Phosphatase 79 U/L (45-117); Anion Gap 8 (5-15); BUN 53 mg/dL (7-18); BUN/Creat Ratio 28.5 RATIO (10-20); Calcium,Total 8.4 mg/dL (8.5-10.1); Chloride 107 mmol/L (98-107); Creatinine, Serum 1.86 mg/dL (0.55-1.02); EST Glomerular Filtration Rate 27 mL/min (>60); Est Glom Filt Rate - Afr Amer 33 mL/min (>60); Estimated Creatinine Clearance 16.08 ml/min; Globulin 3.7 g/dL (2.2-4.2); Glucose 120 mg/dL (74-106); Lipase 43 U/L (13-75); Magnesium 2.4 mg/dL (1.6-2.6); Potassium 4.1 mmol/L (3.5-5.1); Protein, Total 6.5 g/dL (6.4-8.2); Sodium Level 138 mmol/L (136-145)
[2023-02-28 20:14] LABS: Bacteria 0 SEEN /hpf (None Seen); Mucous, Urine 0 SEEN /hpf (<or=2+); Red Blood Cells-Urine 0 SEEN /hpf (0-5); Squamous Epithelial Cells - UA 0 SEEN /hpf (5-10); White Blood Cells 0 SEEN /hpf (0-5)
[2023-02-28 20:15] LABS: Color, Urine Yellow (Yellow); Glucose, Dipstick Normal (Normal); Ketone-Dipstick Negative (Negative); Leukocyte Esterase-Dipstick Negative /ul (Negative); Nitrite-Dipstick Negative (Negative); Occult Blood-Urine Negative /ul (Negative); Protein-Dipstick Negative (Negative); Specific Gravity, Urine 1.015 (1.002-1.030); Urine Bilirubin Dipstick Negative (Negative); Urine Clarity Clear (Clear); Urine Urobilinogen Normal (Normal)
--- NOTE | 2023-02-28 20:18 | CT_ITS ---
STUDY: CT ABDOMEN AND PELVIS WITH CONTRAST REASON FOR EXAM: Female, 87 years old. abdominal pain RADIATION DOSAGE (If Supplied By Facility): CTDIvol = ( 11.31 ) mGy, DLP = ( 275.65 ) mGycm TECHNIQUE: Transaxial images were obtained from the dome of the diaphragm to the symphysis pubis without oral contrast. IV 100mL Isovue-370 was administered. Sagittal and coronal images were reconstructed. Individualized dose optimization techniques were used for this CT. COMPARISON: November 22, 2020 FINDINGS: Tiny bilateral pleural effusions with bibasilar atelectasis. The heart is enlarged.. There is mild prominence of the liver the right lobe which demonstrate mild diffuse fatty infiltration. There are multiple cysts... Contracted thick-walled gallbladder without calcified stones . Tiny granulomatous calcifications within normal size spleen Normal pancreas. Normal bilateral adrenal glands. Normal right kidney. Normal left kidney. Normal visualized stomach. Mild nonspecific ileus with diffuse fecal retention within the colon.. Diverticular disease of the descending and sigmoid colon without evidence for acute diverticulitis no evidence for acute appendicitis. Normal abdominal aorta. Normal inferior vena cava. Normal retroperitoneum. Normal urinary bladder. Uterus not visualized consistent with hysterectomy. Bilateral fat-containing inguinal hernias are noted. Lumbar spine demonstrates degenerative change CT/Abdomen/Pelvis W IV Cont ONLY IMPRESSION: Contracted thick-walled gallbladder without calcified stones possibly physiologic. If concern for gallbladder disease ultrasound recommended. Nonspecific ileus diffuse fecal retention in colon.. Diverticular changes of the descending and sigmoid colon without evidence for acute diverticulitis. Electronically Signed: Freddie Vizcarra MD at 20:51 EDT ,
[2023-02-28 20:32] LABS: Lactic Acid 1.2 mmol/L (0.4-1.9)
--- NOTE | 2023-02-28 20:41 | EX.ED.DYSGE1 ---
HPI <MELISSA Mina - Last Filed: 02/28/23 21:43> History of Present Illness Chief Complaint: Diarrhea Narrative Narrative: Patient is an 87-year-old female with history of of kidney disease, dementia, IBS, history of C. difficile who presents to the emergency department for 2 weeks of diarrhea, ongoing weakness and confusion. Patient does live by herself, her neighbor does come and check on her. The patient did get seen by her PCP and a stool culture was completed that was negative. Patient states that she is going so much that she has no control anymore. Patient states that her legs are hurting and she has lower edema swelling as well as difficulty ambulating. Per the patient's neighbor, she is declining. PFS <MELISSA Mina - Last Filed: 02/28/23 21:43> [facility] Medical History (Updated 02/28/23 @ 21:[address] Kyle Schultz, DO) Congestive heart failure (CHF) IBS (irritable bowel syndrome) Home Medications calcium carbonate 500 mg calcium (1,250 mg) tablet (Oyster Shell Calcium 500) 500 mg PO DAILY@0800 09/23/14 [History Last Taken 09/22/14] loperamide 2 mg capsule 2 mg PO Q4H PRN PRN Diarrhea 09/23/14 [History Last Taken 09/23/14] vit A 300 mcg-C 200 mg-E 27 mg-lutein 2 mg and minerals tablet (Ocuvite with Lutein) 1 ea PO DAILY 09/23/14 [History Last Taken 09/22/14] cholecalciferol (vitamin D3) 25 mcg (1,000 unit) tablet (Vitamin D3) 2,000 unit PO DAILY 05/19/15 [History Last Taken Unknown] vitamins B1 2.5 mg-B2 2.5 mg-niacin 5 mg-B12 100 mcg-protease tablet (B-Complex With B-12) 1 tab PO DAILY 05/19/15 [History Last Taken Unknown] famotidine 20 mg tablet 20 mg PO BID 05/24/15 [Rx Last Taken Unknown] doxazosin 4 mg tablet 4 mg PO QHS URINARY RETENTION ##30 06/08/15 [Rx Last Taken Unknown] hydrocortisone 2.5 % topical cream with perineal applicator (Proctozone-HC) 1 applic RECTAL TID PRN PRN hemmrhoids ##0 06/08/15 [Rx Last Taken Unknown] iron aspgl and ps cmplx 150 mg-vit C 50 mg-succinic acid 50 mg capsule (Ferrex) 150 mg PO DAILYCM ##30 06/08/15 [Rx Last Taken Unknown] ondansetron 4 mg disintegrating tablet 4 mg PO Q8H PRN PRN Nausea ##10 06/08/15 [Rx Last Taken Unknown] tramadol 50 mg tablet 50 mg PO Q6H PRN PRN MODERATE TO SEVERE PAIN ##20 06/08/15 [Rx Last Taken Unknown] memantine 14 mg capsule sprinkle,extended release 24hr (Namenda XR) 14 mg PO DAILY #30 ea 02/05/23 [Rx Last Taken Unknown] triamterene 37.5 mg-hydrochlorothiazide 25 mg tablet 1 tab PO DAILY 02/28/23 [History Last Taken Unknown] Allergy/AdvReac Type Severity Reaction Status Date / Time codeine Allergy Unknown Hives Verified 02/28/23 18:57 Family History Sister Breast cancer Ovarian cancer Brother Heart disease Surgical History H/O: knee surgery History of hysterectomy Social History (Updated 02/05/23 @ 09:14 by Christi Hale) household members: none Smoking Status: Never smoker second hand exposure: No alcohol intake: never substance use type: does not use what type of physical activity do you participate in: none seatbelt use: always ROS <MELISSA Mina - Last Filed: 02/28/23 21:43> ROS ED ROS Narrative Constitutional: Negative for fever, chills, weight loss. Positive for weakness Eyes: Negative for vision loss, vision change, double vision ENT: Negative for any sore throat, ear pain, congestion Cardiovascular: Negative for any chest pain, tightness, palpitations Respiratory: Negative for any cough, sputum production, hemoptysis, dyspnea, dyspnea on exertion, orthopnea Gastrointestinal: Negative for any , nausea, vomitin, constipation, blood in stool, blood in vomit. Positive for abdominal pain, diarrhea : Negative for any urinary frequency, dysuria, retention, blood in urine Muscle skeletal: Negative for any muscle joint pain, stiffness, myalgias, arthralgias, neck pain, back pain. Positive bilateral leg pain Neurological: Negative for any headache, syncope, numbness or tingling, dizziness Skin: Negative for any rashes, lumps, itching, abrasions, lacerations Psychiatric: Negative for any depression, anxiety, stress, suicidal ideation, homicidal ideation Hematologic: Negative for any easy bruising, excessive bruising, easy bleeding Allergies: Negative for any eczema, hives, rash EXAM <MELISSA Mina - Last Filed: 02/28/23 21:43> Physical Exam Narrative Exam Narrative: Vital signs reviewed. Patient is mostly alert and orient x3, patient does have slight confusion. Patient does appear dry on exam. HEET: Head normocephalic atraumatic, TMs clear bilaterally. Posterior pharynx is clear, dry mucous membranes. Nares clear bilaterally. Neck: Supple with no lymphadenopathy or tenderness. No signs of meningismus, negative jolt sign. Cardiac: Regular rate and rhythm no murmurs gallops or rubs, equal peripheral pulses bilaterally. Respiratory: Lungs clear to auscultation bilaterally. No chest tenderness. Abdomen: Soft, nontender, nondistended. No abdominal bruit or pulsatile masses. No hepatosplenomegaly Extremities: No peripheral edema, no signs of gross trauma or deformity. Active full range of motion of all extremities. Patient does complain of bilateral lower leg edema however I do not appreciate any pitting edema. He might be slightly larger than normal however there is no pitting edema noted. No neurological focal deficit. Neuro: Cranial nerves II through XII intact, no focal neurological deficits. Skin: Clean dry and intact with no rash, purpura, petechiae, vesicles or pustules. Backs/flank: No CVA tenderness, no midline spinal tenderness, no deformity. Psych: Normal mood and affect. No SI, HI or acute psychosis. Const Vital Signs: 02/28/23 18:40 02/28/23 20:45 02/28/23 21:20 Temperature 96 F L Temperature Source Temporal Pulse Rate 95 89 91 Respiratory Rate 18 18 18 Blood Pressure 119/102 H 175/86 H 180/75 H Blood Pressure Mean 107 115 110 Pulse Ox 100 98 97 Oxygen Delivery Method Room Air Room Air Room Air 02/28/23 21:34 Temperature Temperature Source Pulse Rate 93 Respiratory Rate 18 Blood Pressure 182/78 H Blood Pressure Mean Pulse Ox 97 Oxygen Delivery Method Positive cachectic General Appearance ED: cachectic Nutritional Appearance: cachectic <Dr. Kyle Schultz DO - Last Filed: 02/28/23 21:32> Physical Exam Const Vital Signs: 02/28/23 18:40 02/28/23 20:45 02/28/23 21:20 Temperature 96 F L Temperature Source Temporal Pulse Rate 95 89 91 Respiratory Rate 18 18 18 Blood Pressure 119/102 H 175/86 H 180/75 H Blood Pressure Mean 107 115 110 Pulse Ox 100 98 97 Oxygen Delivery Method Room Air Room Air Room Air 02/28/23 21:34 Temperature Temperature Source Pulse Rate 93 Respiratory Rate 18 Blood Pressure 182/78 H Blood Pressure Mean Pulse Ox 97 Oxygen Delivery Method MDM <MELISSA Mina - Last Filed: 02/28/23 21:43> MDM Lab Data Labs: Laboratory Results - last 24 hr 02/28/23 02/28/23 02/28/23 19:35 19:35 19:48 WBC 6.4 RBC 3.63 L Hgb 10.2 L Hct 33.8 L MCV 93.1 MCH 28.1 MCHC 30.2 L RDW Std Deviation 49.1 H RDW Coeff of Hanh 14.5 Plt Count 193 MPV 11.0 Immature Gran % (Auto) 0.600 Neut % (Auto) 71.6 H Lymph % (Auto) 15.7 L Rock % (Auto) 10.4 H Eos % (Auto) 1.4 Baso % (Auto) 0.3 Absolute Neuts (auto) 4.6 Absolute Lymphs (auto) 1.01 Nucleated RBC % 0 Sodium 138 Potassium 4.1 Chloride 107 Carbon Dioxide 23.0 Anion Gap 8 BUN 53 H Creatinine 1.86 H Estim Creat Clear Calc 16.08 Est GFR (MDRD) Af Amer 33 L Est GFR (MDRD) Non-Af 27 L BUN/Creatinine Ratio 28.5 H Glucose 120 H Lactic Acid 1.2 Calcium 8.4 L Magnesium 2.4 Total Bilirubin 0.20 AST 17 ALT 20 Alkaline Phosphatase 79 Total Protein 6.5 Albumin 2.8 L Globulin 3.7 Albumin/Globulin Ratio 0.8 L Lipase 43 Urine Color Urine Clarity Urine pH Ur Specific [place] Urine Protein Urine Glucose (UA) Urine Ketones Urine Occult Blood Urine Nitrite Urine Bilirubin Urine Urobilinogen Ur Leukocyte Esterase Urine RBC Urine WBC Ur Squamous Epith Cells Urine Bacteria Urine Mucus 02/28/23 20:00 WBC RBC Hgb Hct MCV MCH MCHC RDW Std Deviation RDW Coeff of Hanh Plt Count MPV Immature Gran % (Auto) Neut % (Auto) Lymph % (Auto) Rock % (Auto) Eos % (Auto) Baso % (Auto) Absolute Neuts (auto) Absolute Lymphs (auto) Nucleated RBC % Sodium Potassium Chloride Carbon Dioxide Anion Gap BUN Creatinine Estim Creat Clear Calc Est GFR (MDRD) Af Amer Est GFR (MDRD) Non-Af BUN/Creatinine Ratio Glucose Lactic Acid Calcium Magnesium Total Bilirubin AST ALT Alkaline Phosphatase Total Protein Albumin Globulin Albumin/Globulin Ratio Lipase Urine Color Yellow Urine Clarity Clear Urine pH 5.0 Ur Specific [place] 1.015 Urine Protein Negative Urine Glucose (UA) Normal Urine Ketones Negative Urine Occult Blood Negative Urine Nitrite Negative Urine Bilirubin Negative Urine Urobilinogen Normal Ur Leukocyte Esterase Negative Urine RBC 0 SEEN Urine WBC 0 SEEN Ur Squamous Epith Cells 0 SEEN Urine Bacteria 0 SEEN Urine Mucus 0 SEEN Radiography Diagnostic Testing: Clinical Impression(s) from Imaging Studies Abdomen/Pelvis CT 02/28/23 20:18 IMPRESSION: Contracted thick-walled gallbladder without calcified stones possibly physiologic. If concern for gallbladder disease ultrasound recommended. Nonspecific ileus diffuse fecal retention in colon.. Diverticular changes of the descending and sigmoid colon without evidence for acute diverticulitis. Electronically Signed: Freddie Vizcarra MD at 20:51 EDT Reading Location ID and State: [address] [place] [address] , Service support , Treatment and Re-Evaluation :: All radiologic examinations were read, reviewed by the emergency department attending. From these reads, a plan of care will be put in place. Patient is alert and orient x4, patient's vital signs are stable she does look nontoxic.Patient presents the emergency department with complaints of diarrhea, ongoing weakness, bilateral lower leg pain. Patient's laboratory values show normal CBC with slight anemia with a hemoglobin of 10.2, this appears chronic over the last years. Patient's chemistries show multiple abnormal abnormalities patient's creatinine is 1.86. Patient usually runs around 0.8-1.0. Over the last 10 days, patient has increased to 1.8-1.86. GFR is low at 33 with a BUN of 53. Lipase was negative. Patient was given 1 L normal saline, as well as CT scan of the abdomen pelvis with IV contrast. CT scan showed some fecal retention however no acute process. Patient did receive 1 L normal saline, she did feel much better. I spoke with the patient at length regarding admission versus going home. She like to go home and follow-up outpatient. Believe this is appropriate, patient does have some renal sufficiency however this is chronic. She will follow-up closely outpatient, she was given strict return precaution. I also spoke with the patient's neighbor who is in verbal agreement. All questions answered. Return precautions given. Patient be diagnosed with diarrhea, gastroenteritis and stable for discharge. <Dr. Kyle Schultz, DO - Last Filed: 02/28/23 21:32> [facility] Narrative Medical decision making narrative: I have personally performed a face to face assessment of the patient and have reviewed the JULIO Note. I performed a substantive portion of the visit including all aspects of the following. My montelongo findings include: History is [patient presents with diarrhea for about a week and 1/2 to 2 weeks. She was seen by her primary care physician and had stool studies that were all negative as well as C. difficile. She was empirically given Flagyl for a couple of days but then discontinued once all the stool studies returned negative. Patient was ordered Lomotil. She presents today complaining of ongoing diarrhea as well as pain in the upper legs for several days. She denies any injury or falls. She is having more pain with ambulation but is still able to care for herself. She denies urinary symptoms. She denies fevers. She does have a history of IBS.] Patient has had some diffuse abdominal discomfort today. Exam is [HEENT-PERRLA, EOMI. Cranial nerves II through XII grossly intact. TMs clear. Mucous membranes moist. No adenopathy. Cardiovascular-regular rate and rhythm without murmur or ectopy Lungs-clear to auscultation, chest wall stable without crepitus or subcu emphysema Abdomen-normoactive bowel sounds, soft, nontender, no rebound or rigidity, no peritoneal signs. Extremities-intact ?4, normal range of motion, normal pulses, atraumatic] Medical Decison Making [patient presents with diarrhea and abdominal pain. She has had negative studies. I did order a repeat of C. difficile however patient could not give a sample. CBC with differential obtained showed a white count of 6.4 with a hemoglobin of 10.2 and a hematocrit of 34 with a platelet count of 193. Chemistries unremarkable. LFTs were normal. Lipase was normal at 43. Lactate was normal 1.2. Urinalysis was normal. CT scan of abdomen pelvis with IV contrast obtained showed ileus and contracted gallbladder as well as moderate stool throughout the colon. Patient's had no vomiting. Etiology of patient's pain in her legs unclear they do not appear edematous and she has no ropes or cords palpated as she only has pain above the knees. I do not feel venous duplex indicated as suspicion for DVT low. Ramon with patient and her friend whether or not she would require admission if she was too weak to go home since she lives alone and patient does not want to be admitted would like to go home. She feels like she can manage. Patient advised to follow-up with her primary care physician within next 3 to 5 days. She is advised to return if persistent diarrhea, dehydration, worsening abdominal pain, or condition should worsen anyway. Concern for C. difficile is low as her friend states that her stools really not been watery but more soft.] Other additions or changes: [None] Lab Data Attestation: I reviewed the patient's lab results. Labs: Laboratory Results - last 24 hr 02/28/23 02/28/23 02/28/23 19:35 19:35 19:48 WBC 6.4 RBC 3.63 L Hgb 10.2 L Hct 33.8 L MCV 93.1 MCH 28.1 MCHC 30.2 L RDW Std Deviation 49.1 H RDW Coeff of Hanh 14.5 Plt Count 193 MPV 11.0 Immature Gran % (Auto) 0.600 Neut % (Auto) 71.6 H Lymph % (Auto) 15.7 L Rock % (Auto) 10.4 H Eos % (Auto) 1.4 Baso % (Auto) 0.3 Absolute Neuts (auto) 4.6 Absolute Lymphs (auto) 1.01 Nucleated RBC % 0 Sodium 138 Potassium 4.1 Chloride 107 Carbon Dioxide 23.0 Anion Gap 8 BUN 53 H Creatinine 1.86 H Estim Creat Clear Calc 16.08 Est GFR (MDRD) Af Amer 33 L Est GFR (MDRD) Non-Af 27 L BUN/Creatinine Ratio 28.5 H Glucose 120 H Lactic Acid 1.2 Calcium 8.4 L Magnesium 2.4 Total Bilirubin 0.20 AST 17 ALT 20 Alkaline Phosphatase 79 Total Protein 6.5 Albumin 2.8 L Globulin 3.7 Albumin/Globulin Ratio 0.8 L Lipase 43 Urine Color Urine Clarity Urine pH Ur Specific [place] Urine Protein Urine Glucose (UA) Urine Ketones Urine Occult Blood Urine Nitrite Urine Bilirubin Urine Urobilinogen Ur Leukocyte Esterase Urine RBC Urine WBC Ur Squamous Epith Cells Urine Bacteria Urine Mucus 02/28/23 20:00 WBC RBC Hgb Hct MCV MCH MCHC RDW Std Deviation RDW Coeff of Hanh Plt Count MPV Immature Gran % (Auto) Neut % (Auto) Lymph % (Auto) Rock % (Auto) Eos % (Auto) Baso % (Auto) Absolute Neuts (auto) Absolute Lymphs (auto) Nucleated RBC % Sodium Potassium Chloride Carbon Dioxide Anion Gap BUN Creatinine Estim Creat Clear Calc Est GFR (MDRD) Af Amer Est GFR (MDRD) Non-Af BUN/Creatinine Ratio Glucose Lactic Acid Calcium Magnesium Total Bilirubin AST ALT Alkaline Phosphatase Total Protein Albumin Globulin Albumin/Globulin Ratio Lipase Urine Color Yellow Urine Clarity Clear Urine pH 5.0 Ur Specific [place] 1.015 Urine Protein Negative Urine Glucose (UA) Normal Urine Ketones Negative Urine Occult Blood Negative Urine Nitrite Negative Urine Bilirubin Negative Urine Urobilinogen Normal Ur Leukocyte Esterase Negative Urine RBC 0 SEEN Urine WBC 0 SEEN Ur Squamous Epith Cells 0 SEEN Urine Bacteria 0 SEEN Urine Mucus 0 SEEN Radiography Diagnostic Testing: Clinical Impression(s) from Imaging Studies Abdomen/Pelvis CT 02/28/23 20:18 IMPRESSION: Contracted thick-walled gallbladder without calcified stones possibly physiologic. If concern for gallbladder disease ultrasound recommended. Nonspecific ileus diffuse fecal retention in colon.. Diverticular changes of the descending and sigmoid colon without evidence for acute diverticulitis. Electronically Signed: Freddie Vizcarra MD at 20:51 EDT , Discharge Plan Triage Chief Complaint: Diarrhea Other Complaint: Edema Complaint ED Midlevel Provider: Andrew Tavera ED Provider: Kyle Schultz Dx/Rx/DC Orders Clinical Impression: Diarrhea, Abdominal pain, Bilateral leg pain Instructions: ED Abdominal Pain Unkn Cause Fem, ED Diarrhea, Unknown Cause, ED Myalgias Prescriptions: No Action memantine [Namenda XR] 14 mg capsule,sprinkle,ER 24hr 14 mg PO DAILY Qty: 30 5RF Rx Instructions: Begin after completing 1 week course of memantine ER 7 mg daily loperamide 2 MG capsule 2 mg PO Q4H PRN PRN (Reason: Diarrhea) Label Comments: Diarrhea calcium carbonate [Oyster Shell Calcium 500] 500 MG tablet 500 mg PO DAILY@0800 Label Comments: Calcium supplement vit A,C and [id number] [Ocuvite with Lutein] 1 EACH tablet 1 ea PO DAILY Label Comments: Supplement cholecalciferol (vitamin D3) [Vitamin D3] 1,000 UNIT tablet 2,000 unit PO DAILY vitamins [id number] [B-Complex With B-12] 1 EACH tablet 1 tab PO DAILY famotidine 20 MG tablet 20 mg PO BID 0RF tramadol 50 MG tablet 50 mg PO Q6H PRN PRN (Reason: MODERATE TO SEVERE PAIN) Qty: 20 0RF hydrocortisone [Proctozone-HC] 1 APPLIC cream with perineal applicator 1 applic RECTAL TID PRN PRN (Reason: hemmrhoids) Qty: 0 0RF ondansetron 4 MG tablet 4 mg PO Q8H PRN PRN (Reason: Nausea) Qty: 10 0RF iron aspgl,ps complex-vit C-sa [Ferrex 150 Plus] 150 MG capsule 150 mg PO DAILYCM Qty: 30 0RF doxazosin 4 MG tablet 4 mg PO QHS Qty: 30 0RF triamterene-hydrochlorothiazid 37.5-25 mg tablet 1 tab PO DAILY Label Comments: TAKE 1 TABLET BY MOUTH DAILY Primary Care Provider: Vivek Godinez Referrals: Vivek Godinez DO [Primary Care Provider] - 3-5 Days Disposition Disposition: Home, Self Care
[2023-02-28 20:45] VITALS: BP 175/86; PULSE 89; RESP 18; O2SAT 98
[2023-02-28 21:20] VITALS: BP 180/75; PULSE 91; RESP 18; O2SAT 97
[2023-02-28 21:34] VITALS: BP 182/78; PULSE 93; RESP 18; O2SAT 97
== END 2023-02-28 21:43 | disposition home or self-care (01) ==
PROVIDERS: Nurse Practitioner; Emergency Provider Emergency Medicine; PCP Family Medicine; Visit Provider Emergency Medicine
DX: R19.7 Diarrhea, unspecified (principal); I50.9 Heart failure, unspecified; K56.7 Ileus, unspecified; R41.0 Disorientation, unspecified; M79.604 Pain in right leg; M79.605 Pain in left leg; Z79.899 Other long term (current) drug therapy; N18.9 Chronic kidney disease, unspecified; R10.9 Unspecified abdominal pain
CPT/HCPCS: 74177; 80053; 81001; 83605; 83690; 83735; 85025; 96360; 96361; 99284; J7030; P9612; Q9967; A4216

== ENCOUNTER → 2023-03-11 | Outpatient (CLI) | payer MEDICARE, OTHER, SELFPAY ==
--- NOTE | 2023-03-11 16:45 | MRI_ITS ---
STUDY: MRI LUMBAR SPINE WITHOUT CONTRAST REASON FOR EXAM: Female, 88 years old. STENOSIS, BACK PAIN, ABD PAIN, BOWEL INCONTINENCE TECHNIQUE: Standardized fat and water weighted pulse sequences were obtained in the sagittal and axial planes. COMPARISON: None FINDINGS: T12-L1: Normal endplates. Normal disc height, desiccation and minimal annular bulge.. Normal bilateral facet joints. Normal central canal and bilateral lateral recesses. Normal bilateral intervertebral neural foramina. Normal lumbar lordosis. There is no substantial scoliosis. Normal conus medullaris that terminates at T12-L1 L1-2: Grade 1 retrolisthesis . Narrowed disc space and moderate bulging disc osteophyte complex.. Mild facet arthropathy and thickening of ligamenta flava. Moderate narrowing of the central canal and bilateral lateral recesses. Moderate to severe bilateral neural foraminal stenosis L2-3: Normal endplates. Normal disc height, desiccation and mild annular bulge with small left paracentral disc protrusion.. Facet arthropathy and thickening of ligamenta flava.. Mild narrowing of the central canal and right lateral recess. Moderate left neural foraminal stenosis.. Severe bilateral neural foraminal stenosis exaggerated by shortened pedicles. L3-4: Normal endplates. Normal disc height, desiccation and minor annular bulge.. Facet arthropathy and severe thickening of the ligamenta flava more pronounced on the left. Mild narrowing of the central canal and right lateral recess. Moderate narrowing of left lateral recess. Severe bilateral neural foraminal stenosis. L4-5: Narrowed disc space and degenerative endplate changes. Desiccation of disc and mild annular bulge. Facet arthropathy and thickening of ligamenta flava. Mild narrowing of the central canal. Normal bilateral lateral recesses. Moderate to severe bilateral neural foraminal stenosis exaggerated by shortened pedicles L5-S1: Normal endplates. Normal disc height, desiccation and minor annular bulge.. Facet arthropathy and mild thickening of ligamenta flava.. Normal central canal and bilateral lateral recesses. Mild to moderate bilateral neural foraminal encroachment. Normal visualized sacral ala. Normal visualized paraspinous soft tissue structures. Incidental finding of mild wedging of superior endplate of T11 with intramedullary bone marrow edema consistent with recent compression fracture MRI/Spine Lumbar (Routine) IMPRESSION: Spondylosis and disc degeneration. Multilevel spinal stenosis secondary to disc disease and facet arthropathy and thickening of ligamenta flava Incidental finding of mild recent compression fracture of the superior endplate of T11. Electronically Signed: Freddie Vizcarra MD at 18:16 EDT ,
== END | disposition home or self-care (01) ==
LOC: MRI 16:05
PROVIDERS: PCP Family Medicine; Referring Provider Family Medicine; Visit Provider Family Medicine
DX: M48.061 Spinal stenosis, lumbar region without neurogenic claudication (principal)
CPT/HCPCS: 72148

== ENCOUNTER → 2023-03-27 | Outpatient (CLI) | payer MEDICARE, OTHER, SELFPAY ==
--- NOTE | 2023-03-27 11:50 | LES_PTH ---
PATIENT: JENNY QUINTERO LOC: [facility] U#:[id number] AGE/SX: 88/F ROOM: RE03/27/[address]: Dr. Vivek Godinez, : 1935 BED: DIS: 03/27/2023 SPEC #: [id number] RECD: 03/27/23 15:11 STATUS: AMOS GUERO #: [id number] CHERELLE: 03/27/23 11:[address]: Vivek Godinez DEPT: SURGICAL PATHOLOGY RECD BY: Brian Wall Tissues: Skin of chest Procedures: Surgery Specimen Level IV HEADER OPERATION: Punch biopsy skin lesion PRE-OP DIAGNOSIS: Irregular nevus chest, rule out melanoma TISSUE SUBMITTED: 2 mm punch upper chest MICROSCOPIC DIAGNOSIS Upper chest lesion, punch biopsy: A piece of skin with benign melanocytic proliferation, most consistent with freckle. Negative for atypia or malignancy. RANDAL:fatuma 03/29/2023 COMMENT Case has been reviewed in consultation with Dr. Serrano who concurs with the above diagnosis. IDC:AM MICROSCOPIC DESCRIPTION Slides are reviewed. GROSS DESCRIPTION Received is one container labeled with the patient's name and not further designated. The specimen consists of an irregular fragment of light briseno soft tissue measuring 0.1 x <0.1 x <0.1 cm. The specimen is totally submitted in one cassette. / AM:fatuma 03/28/2023 TC:5 CPT: 95705
== END | disposition home or self-care (01) ==
LOC: LABSPEC 13:43
PROVIDERS: PCP Family Medicine; Referring Provider Family Medicine; Visit Provider Family Medicine
DX: L98.9 Disorder of the skin and subcutaneous tissue, unspecified (principal)
CPT/HCPCS: 88305

== ENCOUNTER 2023-03-31 19:10 | Emergency (ER) | payer MEDICARE, OTHER, SELFPAY ==
[2023-03-31 19:11] VITALS: BP 172/89; PULSE 109; RESP 16; TEMP 36.4; O2SAT 97; BMI 19.2
--- NOTE | 2023-03-31 19:24 | EX.ED.GENINJ ---
HPI <KERRIE Verma - Last Filed: 03/31/23 19:29> History of Present Illness Chief Complaint: Laceration Narrative Narrative: 88-year-old female has a cat scratch from a neighbors barn cat that occurred about an hour ago. The cat is vaccinated. Patient's not sure of her last tetanus shot. She denies weakness numbness or tingling of the extremity. [facility] <KERRIE Verma - Last Filed: 03/31/23 19:29> [facility] Medical History (Updated 03/31/23 @ 19:27 by KERRIE Verma) Congestive heart failure (CHF) IBS (irritable bowel syndrome) Home Medications calcium carbonate 500 mg calcium (1,250 mg) tablet (Oyster Shell Calcium 500) 500 mg PO DAILY@0800 09/23/14 [History Last Taken 09/22/14] loperamide 2 mg capsule 2 mg PO Q4H PRN PRN Diarrhea 09/23/14 [History Last Taken 09/23/14] vit A 300 mcg-C 200 mg-E 27 mg-lutein 2 mg and minerals tablet (Ocuvite with Lutein) 1 ea PO DAILY 09/23/14 [History Last Taken 09/22/14] cholecalciferol (vitamin D3) 25 mcg (1,000 unit) tablet (Vitamin D3) 2,000 unit PO DAILY 05/19/15 [History Last Taken Unknown] vitamins B1 2.5 mg-B2 2.5 mg-niacin 5 mg-B12 100 mcg-protease tablet (B-Complex With B-12) 1 tab PO DAILY 05/19/15 [History Last Taken Unknown] famotidine 20 mg tablet 20 mg PO BID 05/24/15 [Rx Last Taken Unknown] doxazosin 4 mg tablet 4 mg PO QHS URINARY RETENTION ##30 06/08/15 [Rx Last Taken Unknown] hydrocortisone 2.5 % topical cream with perineal applicator (Proctozone-HC) 1 applic RECTAL TID PRN PRN hemmrhoids ##0 06/08/15 [Rx Last Taken Unknown] iron aspgl and ps cmplx 150 mg-vit C 50 mg-succinic acid 50 mg capsule (Ferrex) 150 mg (1.5 x 150-50-50 mg) PO DAILYCM ##30 09/16/15 [Rx Last Taken Unknown] ondansetron 4 mg disintegrating tablet 4 mg PO Q8H PRN PRN Nausea ##10 06/08/15 [Rx Last Taken Unknown] tramadol 50 mg tablet 50 mg PO Q6H PRN PRN MODERATE TO SEVERE PAIN ##20 06/08/15 [Rx Last Taken Unknown] memantine 14 mg capsule sprinkle,extended release 24hr (Namenda XR) 14 mg PO DAILY #30 ea 02/05/23 [Rx Last Taken Unknown] triamterene 37.5 mg-hydrochlorothiazide 25 mg tablet 1 tab PO DAILY 02/28/23 [History Last Taken Unknown] amoxicillin 875 mg-potassium clavulanate 125 mg tablet 1 tab PO BID 5 days #10 tabs 03/31/23 [Rx Last Taken Unknown] azithromycin 500 mg tablet (Zithromax) 500 mg PO DAILY 4 days #4 tabs 03/31/23 [Rx Last Taken Unknown] Allergy/AdvReac Type Severity Reaction Status Date / Time codeine Allergy Unknown Hives Verified 03/31/23 19:13 Family History Sister Breast cancer Ovarian cancer Brother Heart disease Surgical History H/O: knee surgery History of hysterectomy Social History (Updated 02/05/23 @ 09:14 by Christi Hale) household members: none Smoking Status: Never smoker second hand exposure: No alcohol intake: never substance use type: does not use what type of physical activity do you participate in: none seatbelt use: always ROS <KERRIE Verma - Last Filed: 03/31/23 19:29> ROS ED ROS Narrative Neuro: Negative for motor/sensory dysfunction. Skin: Positive for wound. Musc: Negative for joint pain, swelling. Heme: Negative for easy bruising, bleeding, lymphadenopathy. EXAM <KERRIE Verma - Last Filed: 03/31/23 19:29> Physical Exam Narrative Exam Narrative: CONST: Patient sitting in no acute distress. EYES: Normal inspection. NECK: Normal inspection. RESP: No respiratory distress, CTAB. CVS: Regular rate and rhythm, no murmur, no gallop. SKIN: 3 cm jagged skin tear right volar mid forearm. EXTREMITIES: Normal appearance, full ROM right upper extremity, 2+ radial pulse NEURO: Oriented x4. PSYCH: Normal affect. Const Vital Signs: 03/31/23 19:11 03/31/23 20:04 Temperature 97.6 F L Temperature Source Temporal Pulse Rate 109 H 79 Respiratory Rate 16 16 Blood Pressure 172/89 H 110/75 Blood Pressure Mean 116 Pulse Ox 97 97 Oxygen Delivery Method Room Air <Dr. Sonu Thao DO - Last Filed: 03/31/23 22:37> Physical Exam Const Vital Signs: 03/31/23 19:11 03/31/23 20:04 Temperature 97.6 F L Temperature Source Temporal Pulse Rate 109 H 79 Respiratory Rate 16 16 Blood Pressure 172/89 H 110/75 Blood Pressure Mean 116 Pulse Ox 97 97 Oxygen Delivery Method Room Air MDM <KERRIE Verma - Last Filed: 03/31/23 19:29> [facility] Narrative Medical decision making narrative: History gathered from: Patient and daughter Patient has a skin tear in her right mid forearm from a cat scratch. There is no bleeding and extremity is neurovascularly intact. It was thoroughly cleansed and loosely closed with Steri-Strips. There is no indication for sutures due to risk of infection. Tetanus was updated and she was given first dose of Augmentin and Zithromax here. Patient and family advised on wound care instructions and infection return precautions. She was discharged in stable condition <Dr. Sonu Thao, - Last Filed: 03/31/23 22:37> [facility] Narrative Medical decision making narrative: History gathered from: Patient and daughter Patient has a skin tear in her right mid forearm from a cat scratch. There is no bleeding and extremity is neurovascularly intact. It was thoroughly cleansed and loosely closed with Steri-Strips. There is no indication for sutures due to risk of infection. Tetanus was updated and she was given first dose of Augmentin and Zithromax here. Patient and family advised on wound care instructions and infection return precautions. She was discharged in stable condition Attending note: Patient seen and evaluated with spreading machine operator. I perform my own [id number] evaluation. I agree with the plan of work-up. Cat scratch injury right arm. Known cat to neighborhood with shots up-to-date. Patient had Scratch infection in the past. Tetanus unknown. Exam multiple superficial abrasions laceration volar aspect mid forearm there is no active bleeding. Soft compartments no streaking. Wound cleanse by nursing Steri-Strips. Tetanus updated. Patient covered Augmentin and Zithromax due to cat scratch for coverage of Pasteurella multocida and Bartonella. Wound care discussed with return precautions. Discharge Plan Triage Chief Complaint: Laceration ED Midlevel Provider: Mariah Bowen ED Provider: Sonu Thao Dx/Rx/DC Orders Clinical Impression: Cat scratch of right forearm Instructions: Animal Bites and Scratches Prescriptions: New amoxicillin-pot clavulanate 875-125 mg tablet 1 tab PO BID 5 Days Qty: 10 0RF azithromycin [Zithromax] 500 mg tablet 500 mg PO DAILY 4 Days Qty: 4 0RF No Action memantine [Namenda XR] 14 mg capsule,sprinkle,ER 24hr 14 mg PO DAILY Qty: 30 5RF Rx Instructions: Begin after completing 1 week course of memantine ER 7 mg daily loperamide 2 MG capsule 2 mg PO Q4H PRN PRN (Reason: Diarrhea) Hold Instructions: no longer taking Patient Comments: Diarrhea calcium carbonate [Oyster Shell Calcium 500] 500 MG tablet 500 mg PO DAILY@0800 Patient Comments: Calcium supplement Ocuvite with Lutein 1 EACH tablet 1 ea PO DAILY Patient Comments: Supplement cholecalciferol (vitamin D3) [Vitamin D3] 1,000 UNIT tablet 2,000 unit PO DAILY B-Complex With B-12 1 EACH tablet 1 tab PO DAILY Hold Instructions: no longer taking famotidine 20 MG tablet 20 mg PO BID 0RF Hold Instructions: no longer taking tramadol 50 MG tablet 50 mg PO Q6H PRN PRN (Reason: MODERATE TO SEVERE PAIN) Qty: 20 0RF Hold Instructions: no longer taking hydrocortisone [Proctozone-HC] 1 APPLIC cream with perineal applicator 1 applic RECTAL TID PRN PRN (Reason: hemmrhoids) Qty: 0 0RF ondansetron 4 MG tablet 4 mg PO Q8H PRN PRN (Reason: Nausea) Qty: 10 0RF Hold Instructions: no longer taking Ferrex 150 Plus 150 MG capsule 150 mg PO DAILYCM Qty: 30 0RF doxazosin 4 MG tablet 4 mg PO QHS Qty: 30 0RF Hold Instructions: no longer taking triamterene-hydrochlorothiazid 37.5-25 mg tablet 1 tab PO DAILY Patient Comments: TAKE 1 TABLET BY MOUTH DAILY Primary Care Provider: Vivek Godinez Referrals: Vivek Godinez DO [Primary Care Provider] - Activity Restrictions/Additional Instructions: Take all of the antibiotics, gently clean with soap and water once daily. If any signs of infection develop like redness, swelling, pus or increased pain come back to the emergency room immediately. Disposition Disposition: Home, Self Care Discharge Date/Time: 03/31/23 20:05
[2023-03-31] MEDS: Amox/Clavulanate 875 MG Tablet PO (19:52)
[2023-03-31] MEDS: Azithromycin 250 MG Tablet 500 MG PO (19:52)
[2023-03-31] MEDS: Diphth,Pertuss(Acell),Tet Vac 0.5 ML Vial IM (19:52)
[2023-03-31 20:04] VITALS: BP 110/75; PULSE 79; RESP 16; O2SAT 97
== END 2023-03-31 20:05 | disposition home or self-care (01) ==
LOC: ED 19:46
PROVIDERS: Emergency Provider Emergency Medicine; PCP Family Medicine; Visit Provider Emergency Medicine
DX: S51.801A Unspecified open wound of right forearm, initial encounter (principal); I50.9 Heart failure, unspecified; Z23 Encounter for immunization; W55.03XA Scratched by cat, initial encounter
CPT/HCPCS: 90471; 90715; 99283

== ENCOUNTER → 2023-06-11 | Outpatient (CLI) | payer MEDICARE, OTHER, SELFPAY ==
[2023-06-11 10:22] LABS: Hematocrit 38.9 % (37-47); Hemoglobin 11.9 g/dL (12.0-15.0); Mean Corp Hgb Conc 30.6 g/dL (32-36); Mean Corpuscular Hgb 28.2 pg (27.0-32.0); Mean Corpuscular Volume 92.2 fL (81-99); Mean Platelet Vol. 10.9 fl (6.2-12.0); Platelet Count 216 K/mm3 (150-450); RBC Distribution Width SD 50.8 fl (35.1-43.9); Red Blood Count 4.22 M/mm3 (4.2-5.4); White Blood Count 5.8 K/mm3 (4.4-11.0)
[2023-06-11 10:53] LABS: Vitamin B12 319 pg/mL (211-911)
[2023-06-11 11:39] LABS: ALB/GLOB Ratio 0.9 RATIO (0.9-2.4); AST(SGOT) 17 U/L (15-37); Alanine Aminotransfer ALT/SGPT 21 U/L (13-56); Albumin, Serum 3.4 g/dL (3.2-5.0); Alkaline Phosphatase 68 U/L (45-117); Anion Gap 9 (5-15); BUN 63 mg/dL (7-18); BUN/Creat Ratio 26.6 RATIO (10-20); Calcium,Total 8.8 mg/dL (8.5-10.1); Chloride 111 mmol/L (98-107); Creatinine, Serum 2.37 mg/dL (0.55-1.02); EST Glomerular Filtration Rate 21 mL/min (>60); Est Glom Filt Rate - Afr Amer 25 mL/min (>60); Globulin 3.8 g/dL (2.2-4.2); Glucose 103 mg/dL (74-106); Potassium 2.9 mmol/L (3.5-5.1); Protein, Total 7.2 g/dL (6.4-8.2); Sodium Level 143 mmol/L (136-145); Thyroid Stim Hormone (TSH) 1.64 uIU/mL (0.358-3.74)
[2023-06-14 12:08] LABS: Free Kappa Light Chains 93.2 mg/L (3.3-19.4); Free Lambda Light Chains 56.1 mg/L (5.7-26.3); Vitamin B1, Thiamine 77.3 nmol/L (66.5-200.0)
== END | disposition home or self-care (01) ==
LOC: MTLAB 08:15
PROVIDERS: PCP Family Medicine; Referring Provider Psychiatry & Neurology Neurology; Visit Provider Psychiatry & Neurology Neurology
DX: F03.90 Unspecified dementia, unspecified severity, without behavioral disturbance, psychotic disturbance, mood disturbance, and anxiety (principal); G62.9 Polyneuropathy, unspecified
CPT/HCPCS: 36415; 80053; 82607; 82746; 83883; 84425; 84443; 85027

== ENCOUNTER → 2023-08-14 | Outpatient (CLI) | payer MEDICARE, OTHER, SELFPAY ==
[2023-08-14 11:13] LABS: Anion Gap 6 (5-15); BUN 59 mg/dL (7-18); BUN/Creat Ratio 26.5 RATIO (10-20); Calcium,Total 8.7 mg/dL (8.5-10.1); Chloride 111 mmol/L (98-107); Creatinine, Serum 2.23 mg/dL (0.55-1.02); EST Glomerular Filtration Rate 22 mL/min (>60); Est Glom Filt Rate - Afr Amer 27 mL/min (>60); Glucose 92 mg/dL (74-106); Potassium 3.5 mmol/L (3.5-5.1); Sodium Level 141 mmol/L (136-145)
[2023-08-19 12:08] LABS: Albumin 3.5 g/dL (2.9-4.4); Alpha-1-Globulins 0.2 g/dL (0.0-0.4); Alpha-2-Globulins 0.7 g/dL (0.4-1.0); Gamma Globulin 1.2 g/dL (0.4-1.8); Immunoglobulin A 245 mg/dL (64-422); Immunoglobulin G 1330 mg/dL (586-1602); Immunoglobulin M 59 mg/dL (26-217); PROEL- TOTAL PROTEIN 6.6 g/dL (6.0-8.5)
== END | disposition home or self-care (01) ==
PROVIDERS: PCP Family Medicine; Referring Provider Psychiatry & Neurology Neurology; Visit Provider Psychiatry & Neurology Neurology
DX: G62.9 Polyneuropathy, unspecified (principal); E87.6 Hypokalemia
CPT/HCPCS: 36415; 80048; 82784; 84165; 86334; 86335

== ENCOUNTER 2024-01-14 20:58 | Inpatient (IN) | payer MEDICARE, OTHER, SELFPAY ==
[2024-01-14] VITALS (8 sets, daily range): BP systolic 151–178; BP diastolic 83–101; PULSE 111–137; RESP 28–58; TEMP 36.2–36.6; O2SAT 81–94; BMI 23.5
--- NOTE | 2024-01-14 21:02 | EKG12_ITS ---
Test Reason : CP Blood Pressure : / mmHG Vent. Rate : 127 BPM Atrial Rate : 000 BPM P-R Int : 000 ms QRS Dur : 120 ms QT Int : 334 ms P-R-T Axes : 000 -59 064 degrees QTc Int : 485 ms Atrial fibrillation with rapid ventricular response Right bundle branch block Left anterior fascicular block Bifascicular block Cannot rule out Inferior infarct (masked by fascicular block?) , age undetermined Cannot rule out Anterior infarct , age undetermined Abnormal ECG Confirmed by DOMINIQUE MARCELO, JOSE ([id number]), assistant editor MAXINE NOLAN ([id number]) on 01/20/2024 1:41:15 PM Referred By: JB Confirmed By:OLMAN FOX MD
[2024-01-14] MEDS: Metoprolol Tartrate 5 MG/5 ML Vial IV (21:09)
[2024-01-14 21:19] LABS: Absolute Lymphocyte Count 6.22 X10^3/uL (0.83-4.51); Absolute Neutrophil Count 6.1 X10^3/uL (2.0-7.7); Basophil# 0.05 X10^3/uL; Basophil% 0.4 % (0-1); Eosinophils% 1.5 % (0-5); Hematocrit 37.9 % (37-47); Hemoglobin 11.4 g/dL (12.0-15.0); Lymphocyte # 6.22 X10^3/ul (0.83-4.51); Lymphocyte % 46.6 % (19-41); Mean Corp Hgb Conc 30.1 g/dL (32-36); Mean Corpuscular Hgb 27.7 pg (27.0-32.0); Mean Platelet Vol. 12.2 fl (6.2-12.0); Monocyte# 0.71 X10^3/uL; Monocyte% 5.3 % (0-10); NRBC Flagged by Analyzer 0 % (0-5); Neutrophil # 6.05 X10^3/uL (2.7-7.7); Neutrophil % 45.3 % (47-70); POSITIVE DIFFERENTIAL YES; POSITIVE MORPHOLOGY YES; Platelet Count 264 K/mm3 (150-450); RBC Distribution Width SD 54.1 fl (35.1-43.9); Red Blood Count 4.12 M/mm3 (4.2-5.4); White Blood Count 13.4 K/mm3 (4.4-11.0)
--- NOTE | 2024-01-14 21:25 | CT_ITS ---
We are attempting to reach an attending provider to discuss findings. An addendum with communication details will be sent when the communication is complete. EXAM: CT ANGIOGRAPHY ABDOMEN AND PELVIS WITHOUT AND WITH INTRAVENOUS CONTRAST CLINICAL INDICATION: Pain out of proportion to exam, A-fib, rule out is -- Ischemic bowel TECHNIQUE: Helically acquired angiography images were obtained of the abdomen and pelvis without and with intravenous contrast. This CT exam was performed using one or more of the following dose reduction techniques: automated exposure control, adjustment of the mA and/or kV according to patient size, and/or use of iterative reconstruction technique. MIP reconstructed images were created and reviewed. CONTRAST: IV 75mL Isovue-370 RADIATION DOSE: CTDIvol = 31.33 mGy, DLP = 1353.53 mGy-cm. COMPARISON: No relevant prior studies available. FINDINGS: VASCULATURE: AORTA: No acute findings. Normal caliber abdominal aorta. No dissection. CELIAC TRUNK AND MESENTERIC ARTERIES: Mildly opacified BRIAN on the initial arterial phase exam. RENAL ARTERIES: No acute findings. No occlusion or significant stenosis. No dissection. ILIAC ARTERIES: Mild-moderate atherosclerotic calcification of aortoiliac vessels. Calcifications at the origins of the celiac axis and SMA. Nonopacified and distended SMA on arterial phase exam, it is 1 cm on series 4, image #42. Nonopacified for a long length with heavily calcified origin on sagittal image series 608 image 89. Slight enhancement near the origin but unenhanced long segment of SMA and SMA branches at 4 minute delay, best seen on coronal series 607 image #55. There appears to be at least moderate stenosis at the SMA origin on delayed coronal series 607 image #56. LOWER THORAX: There is moderate multichamber cardiomegaly. The left atrium-atrial appendage are not fully included, the visualized heart chambers are well opacified without filling defects. Mild apparent calcification of left anterior descending coronary artery, not fully included. Distended pulmonary vessels in the lung bases, no evidence of PE. At least mild dependent pleural effusions, greater on the right. Moderate groundglass hazy opacities in the right middle and right lower lobe lung base and milder hazy groundglass opacities in the medial left lung base, likely pulmonary edema. ABDOMEN: LIVER: Elongated right lobe of liver, 17.5 cm in length. Presumed hepatic cyst in the left lobe, 1 cm. GALLBLADDER AND BILE DUCTS: Unremarkable. No calcified gallstones. No gallbladder distention or wall edema. No intra- or extrahepatic biliary ductal dilation. PANCREAS: Unremarkable. No focal cystic or solid mass. SPLEEN: Unremarkable. Normal size without focal cystic or solid mass. ADRENALS: Mild fullness of the adrenals. KIDNEYS AND URETERS: Moderate small kidneys, right 7.1 cm in length, left 6 cm in length. Correlate with renal insufficiency. Normal renal size and position. No hydronephrosis. STOMACH AND BOWEL: Mildly prominent small bowel diameter of about 3.1 cm, appears to contain isodense material within fluid and gas. No visible small bowel pneumatosis or mesenteric venous gas or portal venous gas. Moderate stool in the right colon, mild diverticulosis of the hepatic flexure and transverse colon. Almost collapsed segments of transverse colon, splenic flexure, descending colon and sigmoid. PELVIS: APPENDIX: Normal small appendix is seen on sagittal images. BLADDER: Minimally distended urinary bladder. REPRODUCTIVE: Hysterectomy. ABDOMEN and PELVIS: INTRAPERITONEAL SPACE: Unremarkable. No ascites or other fluid collection. No free air. BONES/JOINTS: Diffuse bone demineralization, chronic-appearing T11 moderate roughly 50% anterior body compression deformity. Marked disc space narrowing at L4-5 with vacuum gas and moderate spondylosis. No high-grade spinal stenosis. Moderate diverticulosis throughout the distal transverse colon, descending colon, sigmoid. Moderate stool in the rectum, the rectum is distended to 4.7 cm AP. No suspicious lytic or blastic abnormality. SOFT TISSUES: Unremarkable. No discrete abdominal or pelvic wall hernia. LYMPH NODES: Unremarkable. No enlarged lymph nodes. CT/CTA Abd/Pelvis W/WO Contrast IMPRESSION: 1. Proximal SMA occlusion. Nonopacified and distended proximal to distal SMA and branches on initial and delayed phase exams. 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 Slight contrast blush at the origin for a length of roughly 1 cm. Moderate calcification and stenosis at the origin. 2. Distended small bowel loops with complex intraluminal fluid. Some mildly thick-walled mid to distal small bowel loops in the lower abdomen. Presumed early ischemic changes. 3. No visible mandeep pneumatosis, mesenteric venous gas or portal venous gas in the liver. 4. Findings consistent with CHF including pulmonary edema, bilateral effusions, cardiomegaly. 5. No free air or free fluid. 6. Scattered stool predominantly in the right colon and in the rectum. Suspicion of early ischemic change throughout most of the transverse colon and descending colon, they are collapsed and questionably slightly thick-walled. 7. No evidence of acute diverticulitis or appendicitis. 8. Faint enhancement in proximal BRIAN segment on early phase exam, it is otherwise not well seen. High-grade apparent calcific stenosis at the origin of the celiac axis but the celiac axis and branches are patent. Electronically Signed: Diamond Uribe MD at 23:56 EDT ,
--- NOTE | 2024-01-14 21:26 | ED.RN ---
PT HAS CODEINE ALLERGY, BENJAMIN STATES PT HAS HAD MORPHINE WITH NO REACTION
[2024-01-14 21:27] LABS: Differential Indicated SCAN CRITERIA MET
[2024-01-14] MEDS: Morphine 2 MG/ML Syringe IV (21:28)
[2024-01-14] MEDS: Ondansetron 4 MG/2 ML Vial IM (21:28)
--- NOTE | 2024-01-14 21:31 | RAD_ITS ---
STUDY: X-RAY CHEST REASON FOR EXAM: Female, 88 years old. Hypoxia, pedal edema, bibasilar rales TECHNIQUE: Single AP portable view of the chest. COMPARISON: None. FINDINGS: Limited by marked artifact from overlying external pacer lead. Hyperexpansion of the lungs consistent with underlying COPD. Diffuse hazy density throughout the right lung, and opacification in the lower right lung base consistent with atelectasis or infiltrate along with small pleural effusion. Possible mild atelectasis or infiltrate in the left lung base with small effusion. There is mild cardiac enlargement. Normal mediastinum and yas. Normal visualized pulmonary arteries. There is atherosclerotic calcification of the aortic arch with tortuosity. Normal visualized thoracic spine. Normal visualized ribs, clavicles, and shoulders. There is no demonstrated abnormality of the visualized soft tissue structures of the upper abdomen. RAD/Chest 1 View (Portable) IMPRESSION: Limited by significant overlying artifact. Pulmonary density throughout the right lung especially in the right lung base including small pleural effusion. Electronically Signed: Shane aFllon MD at 22:28 EDT ,
[2024-01-14 21:47] LABS: ALB/GLOB Ratio 0.8 RATIO (0.9-2.4); AST(SGOT) 31 U/L (15-37); Alanine Aminotransfer ALT/SGPT 43 U/L (13-56); Albumin, Serum 3.4 g/dL (3.2-5.0); Alkaline Phosphatase 84 U/L (45-117); Anion Gap 9 (5-15); BUN 68 mg/dL (7-18); BUN/Creat Ratio 27.9 RATIO (10-20); Calcium,Total 8.7 mg/dL (8.5-10.1); Chloride 116 mmol/L (98-107); Creatinine, Serum 2.44 mg/dL (0.55-1.02); EST Glomerular Filtration Rate 20 mL/min (>60); Est Glom Filt Rate - Afr Amer 24 mL/min (>60); Estimated Creatinine Clearance 11.45 ml/min; Globulin 4.1 g/dL (2.2-4.2); Glucose 199 mg/dL (74-106); Potassium 4.3 mmol/L (3.5-5.1); Protein, Total 7.5 g/dL (6.4-8.2); Sodium Level 142 mmol/L (136-145); Troponin-I HS (w/2H Reflex) 181 pg/mL (3.0-54.0)
--- NOTE | 2024-01-14 21:53 | EX.ED.DYSGE1 ---
HPI History of Present Illness Chief Complaint: Chest Pain Detail of Chief Complaint: Patient has abdominal pain not chest pain Informant: patient, family (Daughter who is the POA.) and EMS Onset/Context/Timing Onset: Hours Context: Sudden Onset Timing: Continuous Quality: Pain Location: Midline supraumbilical Current Severity: Severe Maximum Severity: Severe Worsened by: Limited history due to patient's dementia Relieved by: Nothing Associated Symptoms Associated Symptoms: Nausea, pallor and diaphoresis. Per paramedics tachycardic and hypertensiv Narrative Narrative: Upon arrival patient is to be diaphoretic pale and does not appear well. She is in obvious discomfort. History is limited due to the fact she has dementia. She is on a thiazide diuretic and medication for dementia. She is on no anticoagulant. There is no history according to the daughter of atrial fibrillation. Patient is a Jehovah witness. Patient's only complaint is abdominal pain. I am unable to get any other history from her. Paramedics told me he has a history of congestive heart failure and had swelling of her legs. This was confirmed with daughter. Prior similar symptoms: No Recent Illness/Hospitalization: No PFSH PFSH Medical History Congestive heart failure (CHF) IBS (irritable bowel syndrome) Paroxysmal atrial fibrillation Home Medications calcium carbonate (Oyster Shell Calcium 500) 500 mg PO DAILY@0800 09/23/14 [History Last Taken 09/22/14] loperamide 2 mg capsule 2 mg PO Q4H PRN PRN Diarrhea 09/23/14 [History Last Taken 09/23/14] vit A 300 mcg-C 200 mg-E 27 mg-lutein 2 mg and minerals tablet (Ocuvite with Lutein) 1 ea PO DAILY 09/23/14 [History Last Taken 09/22/14] cholecalciferol (vitamin D3) 25 mcg (1,000 unit) tablet (Vitamin D3) 2,000 unit PO DAILY 05/19/15 [History Last Taken Unknown] vitamins B1 2.5 mg-B2 2.5 mg-niacin 5 mg-B12 100 mcg-protease tablet (B-Complex With B-12) 1 tab PO DAILY 05/19/15 [History Last Taken Unknown] famotidine 20 mg tablet 20 mg PO BID 05/24/15 [Rx Last Taken Unknown] doxazosin 4 mg tablet 4 mg PO QHS URINARY RETENTION ##30 06/08/15 [Rx Last Taken Unknown] hydrocortisone 2.5 % topical cream with perineal applicator (Proctozone-HC) 1 applic RECTAL TID PRN PRN hemmrhoids ##0 06/08/15 [Rx Last Taken Unknown] iron aspgl and ps cmplx 150 mg-vit C 50 mg-succinic acid 50 mg capsule (Ferrex) 150 mg (1.5 x 150-50-50 mg) PO DAILYCM ##30 06/08/15 [Rx Last Taken Unknown] ondansetron 4 mg disintegrating tablet 4 mg PO Q8H PRN PRN Nausea ##10 06/08/15 [Rx Last Taken Unknown] tramadol 50 mg tablet 50 mg PO Q6H PRN PRN MODERATE TO SEVERE PAIN ##20 06/08/15 [Rx Last Taken Unknown] memantine 14 mg capsule sprinkle,extended release 24hr (Namenda XR) 14 mg PO DAILY #30 ea 02/05/23 [Rx Last Taken Unknown] triamterene 37.5 mg-hydrochlorothiazide 25 mg tablet 1 tab PO DAILY 02/28/23 [History Last Taken Unknown] amoxicillin 875 mg-potassium clavulanate 125 mg tablet 1 tab PO BID 5 days #10 tabs 03/31/23 [Rx Last Taken Unknown] azithromycin 500 mg tablet (Zithromax) 500 mg PO DAILY 4 days #4 tabs 03/31/23 [Rx Last Taken Unknown] Allergy/AdvReac Type Severity Reaction Status Date / Time codeine Allergy Unknown Hives Verified 01/14/24 21:03 Family History Sister Breast cancer Ovarian cancer Brother Heart disease Surgical History H/O: knee surgery History of hysterectomy Social History household members: none Smoking Status: Never smoker second hand exposure: No alcohol intake: never substance use type: does not use what type of physical activity do you participate in: none seatbelt use: always ROS ROS ED Review of Systems ROS Unobtainable: due to mental status EXAM Physical Exam Const Vital Signs: 01/14/24 20:59 01/14/24 21:04 01/14/24 21:05 Temperature 98 F Temperature Source Temporal Pulse Rate 137 H Respiratory Rate 42 H Respiratory Effort Normal Non-Labored Blood Pressure 178/97 H Blood Pressure Mean 124 Pulse Ox 89 91 Oxygen Delivery Method Room Air Nasal Cannula Oxygen Flow Rate (L/min) 2 01/14/24 21:31 01/14/24 22:00 01/14/24 22:18 Temperature Temperature Source Pulse Rate 120 H 121 H 120 H Respiratory Rate 43 H 58 H 52 H Respiratory Effort Blood Pressure 156/93 H 159/101 H Blood Pressure Mean 114 120 Pulse Ox 94 81 94 Oxygen Delivery Method Nasal Cannula Nasal Cannula Non-Rebreather Oxygen Flow Rate (L/min) 4 6 15 01/14/24 23:00 01/14/24 23:06 Temperature 97.2 F L Temperature Source Pulse Rate 111 H 119 H Respiratory Rate 28 H 32 H Respiratory Effort Blood Pressure 151/83 H 151/83 H Blood Pressure Mean 105 105 Pulse Ox 84 85 Oxygen Delivery Method Non-Rebreather Oxygen Flow Rate (L/min) Positive well nourished and well developed Constitutional Narrative: Patient is pale. She is in obvious discomfort. Vital signs remarkable for heart rate of 137 respirate of 42 and she is hypertensive. She was hypoxic with a O2 saturation 89% on room air with good waveform. General Appearance ED: well developed, diaphoretic and pallor HEENT Reports moist mucous membranes HEENT Narrative: Head is atraumatic and normocephalic. Ears normal. Nares patent. Posterior pharynx is normal. Eyes PERRL and EOMs intact bilaterally General Eye ED: Negative for pale conjunctiva or scleral icterus Neck no lymphadenopathy, supple and no JVD Chest Wall inspection of chest normal and palpation of chest normal Resp normal respiratory effort and No clear to auscultation bilaterally Auscultation: rales bilateral base and diminished lung sounds right lower Cardio no murmurs Rate: tachycardic Rhythm: abnormal rhythm irregularly irregular GI GI Narrative: Abdomen is soft. Bowel sounds are diminished. Patient has pain out of proportion to stimulus. Bowel sounds are slightly increased. There is no tinkling bowel sounds noted. There is no tympany to percussion. Auscultation: hyperactive bowel sounds Palpation: soft and tender other (Out of proportion to stimulus.) Back/Spine no CVA tenderness Thoracic Spine / Upper Back: Negative for thoracic spinal tenderness Lumbar Spine / Lower Back: Negative for lumbar spinal tenderness Extremity General Extremety ED: Yes edema General Extremity: edema Neuro No oriented x3, CN's II-XII intact bilaterally and no sensory deficits noted Sensorium / Orientation: alert Psych mental status grossly normal Skin no rashes or lesions noted and no wounds General Skin Exam: pallor; Negative for elasticity normal MDM MDM MDM Narrative Medical decision making narrative: Differential diagnosis is abdominal pain unknown etiology, ischemic bowel due to embolic phenomenon from A-fib. Light of patient's presentation also need to evaluate for atypical cardiac presentation. CBC, electrolytes, troponin, BNP were obtained. Clinically I am concerned that patient is fluid overloaded with evidence of CHF. History & Record Review Additional record(s) reviewed:: Prior ED visit and Prior labs Lab Data Attestation: I reviewed the patient's lab results. Lab results narrative: White count is elevated. Patient has mild anemia with normal indices. Electrolyte panel is remarkable for chloride of 116. CO2 of 17 with an anion gap of 9. This represents a normal gap acidosis. BUN and creatinine are higher than prior at 68 and 2.44. Estimated GFR is 20. Glucose is elevated at 119. I am not suspicious that this is DKA. Troponins elevated 181. BNP is elevated 567. Labs: Laboratory Results - last 24 hr 01/14/24 01/14/24 21:00 Unknown WBC 13.4 H RBC 4.12 L Hgb 11.4 L Hct 37.9 MCV 92.0 MCH 27.7 MCHC 30.1 L RDW Std Deviation 54.1 H RDW Coeff of Hanh 16.0 H Plt Count 264 MPV 12.2 H Immature Gran % (Auto) 0.900 Neut % (Auto) 45.3 L Lymph % (Auto) 46.6 H [place] % (Auto) 5.3 Eos % (Auto) 1.5 Baso % (Auto) 0.4 Absolute Neuts (auto) 6.1 Absolute Lymphs (auto) 6.22 H Nucleated RBC % 0 Differential Comment SCANNED Sodium 142 Potassium 4.3 Chloride 116 H Carbon Dioxide 17.0 L Anion Gap 9 BUN 68 H Creatinine 2.44 H Estim Creat Clear Calc 11.45 Est GFR (MDRD) Af Amer 24 L Est GFR (MDRD) Non-Af 20 L BUN/Creatinine Ratio 27.9 H Glucose 199 H Lactic Acid 2.2 H* Calcium 8.7 Total Bilirubin 0.30 AST 31 ALT 43 Alkaline Phosphatase 84 Troponin I High Sens 181 H* B-Natriuretic Peptide 567.8 H Total Protein 7.5 Albumin 3.4 Globulin 4.1 Albumin/Globulin Ratio 0.8 L Radiography Chest X-Ray - ED: 1 View and Read by ED Physician (Patient has increased interstitial opacification on the right side. Cardiac size and silhouette are unremarkable. Part of the right heart border is obscured due to pacemaker pad. There is no evidence of a pneumothorax or effusion on the left. There appears to be an effusion on the right. This i) Diagnostic Testing: Clinical Impression(s) from Imaging Studies Chest X-Ray 01/14/24 21:31 IMPRESSION: Limited by significant overlying artifact. Pulmonary density throughout the right lung especially in the right lung base including small pleural effusion. Electronically Signed: Shane Fallon MD at 22:28 EDT , EKG Initial EKG: Attestation: I personally reviewed and interpreted this EKG as follows: Interpretation: Atrial Fibrillation (Reaches 127. There is evidence of a right bundle branch block and left anterior fascicular block. QRS duration 120 ms. QT duration 334 ms. [place] is to the left. There is no obvious acute ischemic changes. Prehospital EKG revealed couplets and triplets. She was in A-fib. Computer read acute ST) Treatment and Re-Evaluation :: At 2111 I was informed by nursing staff that patient is now on 100% nonrebreather and is hypoxic. Spoke with daughter who is the POA. In light of her age, quality of life and multiple issues she was made DNR comfort care. Will contact hospice. Verbal order for Ativan and Dilaudid was given because patient is very uncomfortable in obvious discomfort and tachypneic. Hospice has been paged. I was informed at 2251 by the charge nurse that the hospice nurses are not trained for admission. Will need to call hospitalist for admission to hospice. Discharge Plan Triage Chief Complaint: Chest Pain ED Provider: Matthews,Timothy Dx/Rx/DC Orders Clinical Impression: Acute hypoxemic respiratory failure, Patient is Scientologist, Dementia, Atrial fibrillation with RVR, Non-ST elevated myocardial infarction (non-STEMI), Acute exacerbation of congestive heart failure, Pleural effusion, right, DNR (do not resuscitate) discussion, DNR (do not resuscitate), Acidosis, lactic Prescriptions: No Action memantine [Namenda XR] 14 mg capsule,sprinkle,ER 24hr 14 mg PO DAILY Qty: 30 5RF Rx Instructions: Begin after completing 1 week course of memantine ER 7 mg daily loperamide 2 MG capsule 2 mg PO Q4H PRN PRN (Reason: Diarrhea) Hold Instructions: no longer taking Patient Comments: Diarrhea calcium carbonate [Oyster Shell Calcium 500] 500 MG tablet 500 mg PO DAILY@0800 Patient Comments: Calcium supplement Ocuvite with Lutein 1 EACH tablet 1 ea PO DAILY Patient Comments: Supplement cholecalciferol (vitamin D3) [Vitamin D3] 1,000 UNIT tablet 2,000 unit PO DAILY B-Complex With B-12 1 EACH tablet 1 tab PO DAILY Hold Instructions: no longer taking famotidine 20 MG tablet 20 mg PO BID 0RF Hold Instructions: no longer taking tramadol 50 MG tablet 50 mg PO Q6H PRN PRN (Reason: MODERATE TO SEVERE PAIN) Qty: 20 0RF Hold Instructions: no longer taking hydrocortisone [Proctozone-HC] 1 APPLIC cream with perineal applicator 1 applic RECTAL TID PRN PRN (Reason: hemmrhoids) Qty: 0 0RF ondansetron 4 MG tablet 4 mg PO Q8H PRN PRN (Reason: Nausea) Qty: 10 0RF Hold Instructions: no longer taking Ferrex 150 Plus 150 MG capsule 150 mg PO DAILYCM Qty: 30 0RF doxazosin 4 MG tablet 4 mg PO QHS Qty: 30 0RF Hold Instructions: no longer taking triamterene-hydrochlorothiazid 37.5-25 mg tablet 1 tab PO DAILY Patient Comments: TAKE 1 TABLET BY MOUTH DAILY amoxicillin-pot clavulanate 875-125 mg tablet 1 tab PO BID 5 Days Qty: 10 0RF azithromycin [Zithromax] 500 mg tablet 500 mg PO DAILY 4 Days Qty: 4 0RF Primary Care Provider: Vivek Godinez Referrals: Vivek Godinez DO [Primary Care Provider] - Disposition Disposition: Hospice in Medical Facility
[2024-01-14 21:56] LABS: BNP,B-Type NATRIURETIC PEPTIDE 567.8 pg/mL (0-100)
[2024-01-14 22:17] LABS: Differential Comment SCANNED
[2024-01-14 22:18] LABS: Lactic Acid 2.2 mmol/L (0.4-1.9)
[2024-01-14] MEDS: LORazepam 2 MG/ML Syringe 0.5 MG IV (22:28)
[2024-01-14] MEDS: HYDROmorphone 0.5 MG/0.5 ML SYRINGE IV ×2 (22:28→23:30)
--- NOTE | 2024-01-14 22:30 | ED.RN ---
Called and spoke with Ned from [facility] for a consult for patient, per family wishes. Waiting for a call back.
--- NOTE | 2024-01-14 22:36 | ED.RN ---
Pt becoming more lethargic, respiratory rate increasing, SpO2 decreasing, MD at bedside spoke to daughter who states she doesn't think pt would want intubated. Decision made to contact Hospice.
--- NOTE | 2024-01-14 22:53 | ED.RN ---
Ned with [facility] calls back stating althought patient meets criteria for admission to their IPU, the nurses they have at night aren't trained to do admissions. She states a hospice nurse will be out in the morning to see patient. Dr Matthews made aware. Pt to be admitted to hospitalist for inpatient comfort care.
--- NOTE | 2024-01-14 23:04 | HP.PCM.HOS_ITS ---
[facility] - General General Date of Admission: 01/14/24 Date of Service: 01/14/24 Chief Complaint: Abdominal Pain and SOB. HPI Narrative JENNY GALVAN, is a 88 F with a past medical history of essential hypertension, paroxysmal atrial fibrillation; not on anticoagulation, chronic CHF, chronic kidney disease; stage III-IV, chronic dementia, Latter-day, IBS; of diarrheal type, GERD, osteoarthritis; with chronic pain syndrome on as needed tramadol and chronic dementia with DNR CC CODE STATUS followed by hospice as an outpatient who presents to [facility] ER complaining of abdominal pain and shortness of breath. Ms. Galvan is not a reliable historian at this time so information was gathered from chart, medical staff and computer. According to the records the patient experienced the abrupt onset of severe abdominal pain that began a few hours prior to arrival and was in the midline, supraumbilical and was noted to be severe and continuous with nothing making the pain better or worse. She also complained of nausea and was pale in appearance with diaphoresis and lower extremity swelling with EMS activated by her family. She is currently not on anticoagulation in spite of her atrial fibrillation. In the ER she quickly developed acute hypoxic respiratory failure with the patient's daughter refusing intubation with patient having an elevated troponin of 181 pg/mL present on admission consistent with suspected non-STEMI complicated by an elevated BNP of 567.8 pg/mL consistent with acute exacerbation of chronic CHF along with lactic acidosis of 2.2 mmol/L present on admission compounded by right pleural effusion with right pulmonary density throughout the entire right lung with the ER physician then contacting the patient's hospice nurses who follow her as an outpatient who then informed him that they are not trained for admission with recommendation to admit to the hospitalist service so the patient could be transferred to inpatient hospice unit for end-of-life care for stay that is expected to be greater than 48 hours. [facility] Medical History Congestive heart failure (CHF) IBS (irritable bowel syndrome) Paroxysmal atrial fibrillation Home Medications calcium carbonate (Oyster Shell Calcium 500) 500 mg PO DAILY@0800 09/23/14 [H istory Last Taken 09/22/14] loperamide 2 mg capsule 2 mg PO Q4H PRN PRN Diarrhea 01/01/15 [History Last Taken 09/23/14] vit A 300 mcg-C 200 mg-E 27 mg-lutein 2 mg and minerals tablet (Ocuvite with Lut ein) 1 ea PO DAILY 09/23/14 [History Last Taken 09/22/14] cholecalciferol (vitamin D3) 25 mcg (1,000 unit) tablet (Vitamin D3) 2,000 unit PO DAILY 05/19/15 [History Last Taken Unknown] vitamins B1 2.5 mg-B2 2.5 mg-niacin 5 mg-B12 100 mcg-protease tablet (B-Complex With B-12) 1 tab PO DAILY 05/19/15 [History Last Taken Unknown] famotidine 20 mg tablet 20 mg PO BID 05/24/15 [Rx Last Taken Unknown] doxazosin 4 mg tablet 4 mg PO QHS URINARY RETENTION ##30 06/08/15 [Rx Last Taken Unknown] hydrocortisone 2.5 % topical cream with perineal applicator (Proctozone-HC) 1 applic RECTAL TID PRN PRN hemmrhoids ##0 06/08/15 [Rx Last Taken Unknown] iron aspgl and ps cmplx 150 mg-vit C 50 mg-succinic acid 50 mg capsule (Ferrex) 150 mg (1.5 x 150-50-50 mg) PO DAILYCM ##30 06/08/15 [Rx Last Taken Unknown] ondansetron 4 mg disintegrating tablet 4 mg PO Q8H PRN PRN Nausea ##10 06/08/15 [Rx Last Taken Unknown] memantine 14 mg capsule sprinkle,extended release 24hr (Namenda XR) 14 mg PO DAILY #30 ea 02/05/23 [Rx Last Taken Unknown] triamterene 37.5 mg-hydrochlorothiazide 25 mg tablet 1 tab PO DAILY 02/28/23 [History Last Taken Unknown] amoxicillin 875 mg-potassium clavulanate 125 mg tablet 1 tab PO BID 5 days #10 tabs 03/31/23 [Rx Last Taken Unknown] Allergy/AdvReac Type Severity Reaction Status Date / Time codeine Allergy Unknown Hives Verified 01/14/24 21:03 Family History Sister Breast cancer Ovarian cancer Brother Heart disease Surgical History H/O: knee surgery History of hysterectomy Social History household members: none Smoking Status: Never smoker second hand exposure: No alcohol intake: never substance use type: does not use what type of physical activity do you participate in: none seatbelt use: always ROS ROS Narrative Patient is acutely ill and demented at baseline and actively in the process of dying so for review systems cannot be done at this time. Vital Signs Vital Signs Vital Signs: 01/14/24 20:59 01/14/24 21:04 01/14/24 21:05 Temperature 98 F Temperature Source Temporal Pulse Rate 137 H Respiratory Rate 42 H Respiratory Effort Normal Non-Labored Blood Pressure 178/97 H Blood Pressure Mean 124 Pulse Ox 89 91 Oxygen Delivery Method Room Air Nasal Cannula Oxygen Flow Rate (L/min) 2 01/14/24 21:31 01/14/24 22:00 01/14/24 22:18 Temperature Temperature Source Pulse Rate 120 H 121 H 120 H Respiratory Rate 43 H 58 H 52 H Respiratory Effort Blood Pressure 156/93 H 159/101 H Blood Pressure Mean 114 120 Pulse Ox 94 81 94 Oxygen Delivery Method Nasal Cannula Nasal Cannula Non-Rebreather Oxygen Flow Rate (L/min) 4 6 15 Weight Weight: 120 lb 5.958 oz Body Mass Index (BMI) 23.5 Physical Exam Const no apparent distress and average body habitus Constitutional Narrative: Patient is lethargic but arousable. Orientation / Consciousness: lethargic HEENT normocephalic, head/scalp atraumatic and hearing grossly normal bilaterally HEENT Narrative: Mucous membranes dry. Eyes PERRL Neck supple Resp Resp Narrative: Diminished breath sounds throughout with bibasilar rales. Cardio regular rate and regular rhythm GI normal to inspection, nondistended, normoactive bowel sounds, soft to palpation, non-tender and non-distended Extremity Extremity Narrative: 3-4+ bilateral lower extremity pitting edema. Skin Skin Narrative: Patient has no evidence of rash or jaundice. Neuro moves all extremities Sensorium / Orientation: awake, alert and oriented to person Psych Psych Narrative: Patient is lethargic but arousable. Results Medical Records Data Attestation: I reviewed the patient's medical records Lab / Micro Data Attestation: I reviewed the patient's lab results. 01/14/24 Unknown 01/14/24 Unknown Labs: Laboratory Results - last 24 hr 01/14/24 21:00: Lactic Acid 2.2 H* 01/14/24 : WBC 13.4 H, RBC 4.12 L, Hgb 11.4 L, Hct 37.9, MCV 92.0, MCH 27.7, MCHC 30.1 L, RDW Std Deviation 54.1 H, RDW Coeff of Hanh 16.0 H, Plt Count 264, MPV 12.2 H, Immature Gran % (Auto) 0.900, Neut % (Auto) 45.3 L, Lymph % (Auto) 46.6 H, [place] % (Auto) 5.3, Eos % (Auto) 1.5, Baso % (Auto) 0.4, Absolute Neuts (auto) 6.1, Absolute Lymphs (auto) 6.22 H, Nucleated RBC % 0, Differential Comment SCANNED, Sodium 142, Potassium 4.3, Chloride 116 H, Carbon Dioxide 17.0 L, Anion Gap 9, BUN 68 H, Creatinine 2.44 H, Estim Creat Clear Calc 11.45, Est GFR (MDRD) Af Amer 24 L, Est GFR (MDRD) Non-Af 20 L, BUN/Creatinine Ratio 27.9 H , Glucose 199 H, Calcium 8.7, Total Bilirubin 0.30, AST 31, ALT 43, Alkaline Phosphatase 84, Troponin I High Sens 181 H*, B-Natriuretic Peptide 567.8 H, Total Protein 7.5, Albumin 3.4, Globulin 4.1, Albumin/Globulin Ratio 0.8 L Imaging Radiology Impression Chest X-Ray 01/14/24 21:31 IMPRESSION: Limited by significant overlying artifact. Pulmonary density throughout the right lung especially in the right lung base including small pleural effusion. Electronically Signed: Shane Fallon MD at 22:28 EDT , Assessment & Plan Assessment/Plan (1) Non-ST elevated myocardial infarction (non-STEMI): (2) Acute exacerbation of congestive heart failure: QUALIFIERS: Heart failure type: unspecified Qualified Code(s): I50.9 - Heart failure, unspecified (3) Acidosis, lactic: (4) Pleural effusion, right: PLAN: Plan 1. Non-STEMI evidenced by elevated initial troponin of 181 pg/mL present on admission in elderly chronically demented patient with DNR CC CODE STATUS followed as outpatient by hospice - 2. Acute exacerbation of chronic CHF evidenced by elevated proBNP of 567.8 along with right pleural effusion complicating #1 - 3. Lactic acidosis of 2.2 mmol/L present on admission with pulmonary density throughout the entire right lung compounding #1 & #2 - 4. Paroxysmal atrial fibrillation; not on Anticoagulation adding to the pathology of #1 - #3 - 5. CKD; stage III-IV - 6. Essential hypertension - 7. Latter-day - 8. IBS; of diarrheal type - 9. GERD - 10. Osteoarthritis; with chronic pain syndrome on as needed tramadol - Update: I spoke with this patient's family at the bedside in addition to the ER staff and their strong wishes for conservative end-of-life care under hospice. Orders were then placed under the hospice protocol in an effort to keep her comfortable. She is not expected to survive this admission. In an effort to reestablish continuity of care I will consult hospice personnel to see this patient on rounds in the a.m. with help appreciated in advance. Charges/Coding Visit Charges Inpatient E&M: 34897 Init Hosp L2
[2024-01-14 23:15] LABS: Reflex Troponin-HS? (from REC) Y
[2024-01-15 00:34] VITALS: BP 118/60; PULSE 125; RESP 40; TEMP 36.4; O2SAT 68; BMI 23.5
[2024-01-15] MEDS: Furosemide 40 MG/4 ML Vial IV (01:00)
[2024-01-15] MEDS: LORazepam 2 MG/ML Bottle 0.5 MG SL ×3 (02:00→13:11)
[2024-01-15] MEDS: morphine (oral solution) 10MG/0.5ML Syringe 5 MG SL/PO ×3 (02:00→11:51)
[2024-01-15 05:00] VITALS: BP 130/76; PULSE 118; RESP 36; O2SAT 91
--- NOTE | 2024-01-15 07:43 | PN.HOSP_ITS ---
Objective Data Objective Data Vital Signs: Vital Signs Temp Pulse Resp BP Pulse Ox O2 Del Method O2 Flow Rate 97.5 F L 118 H 36 H 130/76 H 91 Nasal Cannula 5 01/15/24 00:34 01/15/24 05:00 01/15/24 05:00 01/15/24 05:00 01/15/24 05:00 01/15/24 05:00 01/15/24 05:00 Oxygen Flow Rate (L/min) 5 Oxygen Delivery Method Nasal Cannula Weight: 120 lb 5.958 oz Body Mass Index (BMI) 23.5 Intake & Output: Intake and Output for Last 24 Hours 01/13/24 01/14/24 01/15/24 23:59 23:59 23:59 Intake Total 0 / 0 Balance 0 / 0 Lab / Micro Data 01/14/24 Unknown 01/14/24 Unknown Labs: Laboratory Results - last 24 hr 01/14/24 21:00: Lactic Acid 2.2 H* 01/14/24 : WBC 13.4 H, RBC 4.12 L, Hgb 11.4 L, Hct 37.9, MCV 92.0, MCH 27.7, MCHC 30.1 L, RDW Std Deviation 54.1 H, RDW Coeff of Hanh 16.0 H, Plt Count 264, MPV 12.2 H, Immature Gran % (Auto) 0.900, Neut % (Auto) 45.3 L, Lymph % (Auto) 46.6 H, [place] % (Auto) 5.3, Eos % (Auto) 1.5, Baso % (Auto) 0.4, Absolute Neuts (auto) 6.1, Absolute Lymphs (auto) 6.22 H, Nucleated RBC % 0, Differential Comment SCANNED, Sodium 142, Potassium 4.3, Chloride 116 H, Carbon Dioxide 17.0 L, Anion Gap 9, BUN 68 H, Creatinine 2.44 H, Estim Creat Clear Calc 11.45, Est GFR (MDRD) Af Amer 24 L, Est GFR (MDRD) Non-Af 20 L, BUN/Creatinine Ratio 27.9 H , Glucose 199 H, Calcium 8.7, Total Bilirubin 0.30, AST 31, ALT 43, Alkaline Phosphatase 84, Troponin I High Sens 181 H*, B-Natriuretic Peptide 567.8 H, Total Protein 7.5, Albumin 3.4, Globulin 4.1, Albumin/Globulin Ratio 0.8 L Radiography Diagnostic Testing: Radiology Impression Abdomen/Pelvis CTA 01/14/24 21:25 IMPRESSION: 1. Proximal SMA occlusion. Nonopacified and distended proximal to distal SMA and branches on initial and delayed phase exams. 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 Slight contrast blush at the origin for a length of roughly 1 cm. Moderate calcification and stenosis at the origin. 2. Distended small bowel loops with complex intraluminal fluid. Some mildly thick-walled mid to distal small bowel loops in the lower abdomen. Presumed early ischemic changes. 3. No visible mandeep pneumatosis, mesenteric venous gas or portal venous gas in the liver. 4. Findings consistent with CHF including pulmonary edema, bilateral effusions, cardiomegaly. 5. No free air or free fluid. 6. Scattered stool predominantly in the right colon and in the rectum. Suspicion of early ischemic change throughout most of the transverse colon and descending colon, they are collapsed and questionably slightly thick-walled. 7. No evidence of acute diverticulitis or appendicitis. 8. Faint enhancement in proximal BRIAN segment on early phase exam, it is otherwise not well seen. High-grade apparent calcific stenosis at the origin of the celiac axis but the celiac axis and branches are patent. Electronically Signed: Diamond Uribe MD at 23:56 EDT , ADDENDUM: 01/15/24 0007 IMPRESSION: 1. Proximal SMA occlusion. Nonopacified and distended proximal to distal SMA and branches on initial and delayed phase exams. 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 Slight contrast blush at the origin for a length of roughly 1 cm. Moderate calcification and stenosis at the origin. 2. Distended small bowel loops with complex intraluminal fluid. Some mildly thick-walled mid to distal small bowel loops in the lower abdomen. Presumed early ischemic changes. 3. No visible mandeep pneumatosis, mesenteric venous gas or portal venous gas in the liver. 4. Findings consistent with CHF including pulmonary edema, bilateral effusions, cardiomegaly. 5. No free air or free fluid. 6. Scattered stool predominantly in the right colon and in the rectum. Suspicion of early ischemic change throughout most of the transverse colon and descending colon, they are collapsed and questionably slightly thick-walled. 7. No evidence of acute diverticulitis or appendicitis. 8. Faint enhancement in proximal BRIAN segment on early phase exam, it is otherwise not well seen. High-grade apparent calcific stenosis at the origin of the celiac axis but the celiac axis and branches are patent. N.B. : The above Results were Read Back by Diamond Uribe MD to Kory Sánchez MD, and understanding confirmed on 01/15/2024 00:00:15 (ET). Electronically Signed: Diamond Uribe MD at 23:56 EDT , Chest X-Ray 01/14/24 21:31 IMPRESSION: Limited by significant overlying artifact. Pulmonary density throughout the right lung especially in the right lung base including small pleural effusion. Electronically Signed: Shane Fallon MD at 22:28 EDT , Physical Exam Narrative Seen and examined Patient admitted last night with abdominal pain nausea and vomiting. Denies chest pain but mild short of breath. Currently patient is in pain he states 10/10 in whole abdomen. History is difficult but mainly asked from patient's daughter who states she put her hand on lower abdomen so therefore probably started on lower abdomen. Physical exam General: Alert, awake, in distress due to pain HEENT: Atraumatic, PERRLA, EOMI, Normocephalic Oral: Oral mucosa dry no Gingival or Mucosal Lesions/ Ulcerations Neck: Supple, No JVD, Negative Carotid Bruits Chest wall/Lungs: Air entry diminished in bilateral lung bases. No crepit ation/rhonchi Cardiovascular: Regular rate, Regular Rhythm, Normal S1, Normal S2, No M/G/R Abdomen: Bowel Sounds very sluggish to absent. soft, diffuse tenderness and distention predominantly in hypogastrium and umbilical region : No dysuria. No renal angle tenderness. No suprapubic tenderness. Extremities: No edema, Capillary Refill Less than 3 Seconds Skin: No rashes, No breakdown Musculoskeletal: No Tenderness to Palpation of Joints or Extremities Neurological: Cranial nerves II-XII grossly intact, DTR 2+/4. No acute focal neurological deficit. Psych/Mental Status: Flat affect dementia Assessment & Plan Assessment/Plan (1) Non-ST elevated myocardial infarction (non-STEMI): (2) Acute exacerbation of congestive heart failure: PLAN: Plan This is a 88-year-old female came to ED with abdominal pain, nausea and vomiting. Upon ED arrival patient was diaphoretic pale and discomfort. She also has dementia on thiazide. Not on anticoagulant with history of paroxysmal A-fib 1. 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 Nonopacified and distended proximal to distal SMA and branches with calcification at the origin of celiac axis and SMA. Contrast blush at the origin of length of 1 cm with moderate calcification and stenosis. Distended small bowel loops with complex intraluminal fluid with mild thickened wall mid to distal and lower abdomen. Open ischemic changes. Small bowel diameter about 3.1 cm. The findings were discussed with the POA of consequences of SMA including ileus obstruction, abdominal distention, necros is/gangrene and sepsis. Wanted further opinion from surgeon therefore surgeon consulted. Discussed with Dr. Astudillo. Lactic acidosis of 2.2 mmol/L present on admission probably from bowel ischemia. Patient is NPO. The patient's daughter seems overwhelming overburdened with with the amount of clinical information of non-STEMI, CHF exacerbation and SMA occlusion. Patient is clinically not in a good health or physically and physiologically optimal health and functional capacity is <4MET 2. Non-STEMI evidenced by elevated initial troponin of 181 pg/mL present on admission in elderly chronically demented patient with DNR CC CODE STATUS followed as outpatient by hospice: Doing patient does not complain of chest pain or acute shortness of breath but mainly abdominal symptoms therefore I feel non- STEMI is due to increased cardiac demand with history of heart failure therefore type II. 3. Acute exacerbation of chronic CHF exact type classification and etiology unclear, undetermined: proBNP of 567.8 along with right pleural effusion. Patient is DNR CC, hospice care end-of-life therefore no further workup including echo ordered. 4. Paroxysmal atrial fibrillation; not on Anticoagulation.H&H 11.4/37%. 5. CKD; stage IV -patient baseline creatinine runs around 2.2-2.4. On review of creatinine profile it seems patient creatinine progressively worsening since 2014, worsening 2022 about 2.35. Estimated creatinine clearance around 16 to 17 mL/min 6. Essential hypertension -heart rate and blood pressure high. Sinus tachycardia 122/min blood pressure 136/81 but elevated/High 178/97 in ED. 7. Confucianist - 8. IBS; of diarrheal type - 9. GERD - 10. Osteoarthritis; with chronic pain syndrome on as needed tramadol - Charges/Coding Addendum Addendum: Total time of the visit including total time spent in counseling or coordination of care, (more than 50% of the total time, spent in obtaining medical information from nurses and other ancillary care providers,explaining to the patient about labs, imaging, diagnosis and management of active complex medical conditions), discussion with the surgeon, clinical update and discussion with patient's POA her daughter and other family members review of labs and imaging is 40 minutes. Visit Charges Inpatient E&M: 35828 Subs Hosp L3
[2024-01-15 08:15] VITALS: BP 136/81; PULSE 122; RESP 26; TEMP 36.4; O2SAT 92
--- NOTE | 2024-01-15 08:48 | EX.PCM.CON.S ---
Assessment & Plan Assessment/Plan (1) Abdominal pain: QUALIFIERS: Abdominal location: generalized Qualified Code(s): R10.84 - Generalized abdominal pain PLAN: I have been consulted in conjunction with Dr. Astudillo. I have discussed my findings with Dr. Astudillo. Patient presented with acute abdominal pain secondary to constipation and occlusion of SMA. Per patient's daughter, POA, patient has been declining and has a history of dementia. Daughter has decided to make patient DNRCC. Inpatient hospice has been consulted and patient will be transferred to inpatient hospice. I did have a discussion with the POA noting, patient is not a surgical candidate. I did not that we could offer the patient an NG tube and an enema to assist with constipation finding. Patient's daughter declined and voiced she did not want any tubes. Patient's daughter had the opportunity to ask and have questions answered. Patient's daughter is appreciative of the consultation and explanation of options as she voiced she was feeling overwhelmed. Thank you for allowing us to participate in this patient's care. HPI Consult Data Date of Consult: 01/15/24 HPI Narrative Reason for Consultation: Abdominal pain HPI Narrative: JENNY QUINTERO, is a 88 F who presents with abdominal pain. Patient was unable to provide a history. Most of the patient's history was provided by the patient's daughter, who is the POA. Patient was brought in by EMS with abdominal pain and shortness of breath. Patient was found to have a non-STEMI, acute CHF and proximal SMA occlusion, distended small bowel loops with intraluminal fluid, presumed early ischemic changes. CTA also demonstrates constipation. Patient continues to voice her abdominal pain. She has a history of dementia per POA. Patient is being followed by hospice as an outpatient. Family is not wanting any drastic measures at this time. [facility] Medical History Congestive heart failure (CHF) IBS (irritable bowel syndrome) Paroxysmal atrial fibrillation Home Medications calcium carbonate (Oyster Shell Calcium 500) 500 mg PO DAILY@0800 09/23/14 [History Last Taken 09/22/14] loperamide 2 mg capsule 2 mg PO Q4H PRN PRN Diarrhea 09/23/14 [History Last Taken 09/23/14] vit A 300 mcg-C 200 mg-E 27 mg-lutein 2 mg and minerals tablet (Ocuvite with Lutein) 1 ea PO DAILY 09/23/14 [History Last Taken 09/22/14] cholecalciferol (vitamin D3) 25 mcg (1,000 unit) tablet (Vitamin D3) 2,000 unit PO DAILY 05/19/15 [History Last Taken Unknown] vitamins B1 2.5 mg-B2 2.5 mg-niacin 5 mg-B12 100 mcg-protease tablet (B-Complex With B-12) 1 tab PO DAILY 05/19/15 [History Last Taken Unknown] famotidine 20 mg tablet 20 mg PO BID 05/24/15 [Rx Last Taken Unknown] doxazosin 4 mg tablet 4 mg PO QHS URINARY RETENTION ##30 06/08/15 [Rx Last Taken Unknown] hydrocortisone 2.5 % topical cream with perineal applicator (Proctozone-HC) 1 applic RECTAL TID PRN PRN hemmrhoids ##0 06/08/15 [Rx Last Taken Unknown] iron aspgl and ps cmplx 150 mg-vit C 50 mg-succinic acid 50 mg capsule (Ferrex) 150 mg (1.5 x 150-50-50 mg) PO DAILYCM ##30 06/08/15 [Rx Last Taken Unknown] ondansetron 4 mg disintegrating tablet 4 mg PO Q8H PRN PRN Nausea ##10 06/08/15 [Rx Last Taken Unknown] memantine 14 mg capsule sprinkle,extended release 24hr (Namenda XR) 14 mg PO DAILY #30 ea 02/05/23 [Rx Last Taken Unknown] triamterene 37.5 mg-hydrochlorothiazide 25 mg tablet 1 tab PO DAILY 02/28/23 [History Last Taken Unknown] amoxicillin 875 mg-potassium clavulanate 125 mg tablet 1 tab PO BID 5 days #10 tabs 03/31/23 [Rx Last Taken Unknown] Allergy/AdvReac Type Severity Reaction Status Date / Time codeine Allergy Unknown Hives Verified 01/14/24 21:03 Family History Sister Breast cancer Ovarian cancer Brother Heart disease Surgical History H/O: knee surgery History of hysterectomy Social History household members: none Smoking Status: Never smoker second hand exposure: No alcohol intake: never substance use type: does not use what type of physical activity do you participate in: none seatbelt use: always ROS Review of Systems ROS Unobtainable: due to mental status Physical Exam Const General Appearance: frail Orientation / Consciousness: confused HEENT normocephalic Neck full ROM Resp normal air movement Cardio Rate: tachycardic GI GI Narrative: Abdomen- generalized tenderness, guarding no CVA tenderness Back/Spine no CVA tenderness Extremity General Extremity: other findings Other Details: contracted Skin no rashes or lesions noted Neuro no focal motor deficits Sensorium / Orientation: confused Psych Appearance: disheveled Activity / Motor Behavior: fidgetting Thought Process: confused Lab / Micro Data 01/14/24 Unknown 01/14/24 Unknown Labs: Laboratory Results - last 24 hr 01/14/24 21:00: Lactic Acid 2.2 H* 01/14/24 : WBC 13.4 H, RBC 4.12 L, Hgb 11.4 L, Hct 37.9, MCV 92.0, MCH 27.7, MCHC 30.1 L, RDW Std Deviation 54.1 H, RDW Coeff of Hanh 16.0 H, Plt Count 264, MPV 12.2 H, Immature Gran % (Auto) 0.900, Neut % (Auto) 45.3 L, Lymph % (Auto) 46.6 H, [place] % (Auto) 5.3, Eos % (Auto) 1.5, Baso % (Auto) 0.4, Absolute Neuts (auto) 6.1, Absolute Lymphs (auto) 6.22 H, Nucleated RBC % 0, Differential Comment SCANNED, Sodium 142, Potassium 4.3, Chloride 116 H, Carbon Dioxide 17.0 L, Anion Gap 9, BUN 68 H, Creatinine 2.44 H, Estim Creat Clear Calc 11.45, Est GFR (MDRD) Af Amer 24 L, Est GFR (MDRD) Non-Af 20 L, BUN/Creatinine Ratio 27.9 H, Glucose 199 H, Calcium 8.7, Total Bilirubin 0.30, AST 31, ALT 43, Alkaline Phosphatase 84, Troponin I High Sens 181 H*, B-Natriuretic Peptide 567.8 H, Total Protein 7.5, Albumin 3.4, Globulin 4.1, Albumin/Globulin Ratio 0.8 L Imaging Radiology Impression Abdomen/Pelvis CTA 01/14/24 21:25 IMPRESSION: 1. Proximal SMA occlusion. Nonopacified and distended proximal to distal SMA and branches on initial and delayed phase exams. 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 Slight contrast blush at the origin for a length of roughly 1 cm. Moderate calcification and stenosis at the origin. 2. Distended small bowel loops with complex intraluminal fluid. Some mildly thick-walled mid to distal small bowel loops in the lower abdomen. Presumed early ischemic changes. 3. No visible mandeep pneumatosis, mesenteric venous gas or portal venous gas in the liver. 4. Findings consistent with CHF including pulmonary edema, bilateral effusions, cardiomegaly. 5. No free air or free fluid. 6. Scattered stool predominantly in the right colon and in the rectum. Suspicion of early ischemic change throughout most of the transverse colon and descending colon, they are collapsed and questionably slightly thick-walled. 7. No evidence of acute diverticulitis or appendicitis. 8. Faint enhancement in proximal BRIAN segment on early phase exam, it is otherwise not well seen. High-grade apparent calcific stenosis at the origin of the celiac axis but the celiac axis and branches are patent. Electronically Signed: Diamond Uribe MD at 23:56 EDT , ADDENDUM: 01/15/24 0007 IMPRESSION: 1. Proximal SMA occlusion. Nonopacified and distended proximal to distal SMA and branches on initial and delayed phase exams. 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 Slight contrast blush at the origin for a length of roughly 1 cm. Moderate calcification and stenosis at the origin. 2. Distended small bowel loops with complex intraluminal fluid. Some mildly thick-walled mid to distal small bowel loops in the lower abdomen. Presumed early ischemic changes. 3. No visible mandeep pneumatosis, mesenteric venous gas or portal venous gas in the liver. 4. Findings consistent with CHF including pulmonary edema, bilateral effusions, cardiomegaly. 5. No free air or free fluid. 6. Scattered stool predominantly in the right colon and in the rectum. Suspicion of early ischemic change throughout most of the transverse colon and descending colon, they are collapsed and questionably slightly thick-walled. 7. No evidence of acute diverticulitis or appendicitis. 8. Faint enhancement in proximal BRIAN segment on early phase exam, it is otherwise not well seen. High-grade apparent calcific stenosis at the origin of the celiac axis but the celiac axis and branches are patent. N.B. : The above Results were Read Back by Diamond Uribe MD to Kory Sánchez MD, and understanding confirmed on 01/15/2024 00:00:15 (ET). Electronically Signed: Diamond Uribe MD at 23:56 EDT , Chest X-Ray 01/14/24 21:31 IMPRESSION: Limited by significant overlying artifact. Pulmonary density throughout the right lung especially in the right lung base including small pleural effusion. Electronically Signed: Shane Fallon MD at 22:28 EDT , Charges/Coding Visit Charges Office Visits / Consults: [id number] IP Consult L3
--- NOTE | 2024-01-15 09:19 | CASEMGMT ---
CRUZITO reviewed chart and noted that Hospice was consulted for patient. Moira from Hospice is now at [facility] to meet with patient and family. Jacquelyn SCANLON
[2024-01-15] MEDS: Ketorolac 15 MG/ML Vial IV (09:32)
--- NOTE | 2024-01-15 10:27 | PCM.DC ---
Discharge Instructions Diet Discharge Diet: - (As per hospice care) Activity Discharge Activity: Return to Normal Activity Weight Bearing Status: Weight bearing as tolerated Dressing / Incision Call your doctor if you observe: - (Inpatient hospice care.) Follow Up Care When: IN 2 WEEKS Test Results: Test results from this visit will be discussed in further detail at your follow-up appointment, if applicable. Discharge Plan Admission Admit Date/Time: 01/14/24 23:19 Attending Provider: Ludwin Phillips Primary Care Provider: Vivek Godinez Consulting Providers: Walter Vasquez; Walter Villareal; Georgia Ansari; Pattie Tidwell; Melani Godinez INTERMISSION COORDINATOR Instructions Additional Instructions / Restrictions: Hold all oral medication as patient is an ileus with likely tubing obstruction. SMA occlusion. Discharge Orders/Prescriptions Prescriptions: Continued Ocuvite with Lutein 1 EACH tablet 1 ea PO DAILY Patient Comments: Supplement ondansetron 4 MG tablet 4 mg PO Q8H PRN PRN (Reason: Nausea) Qty: 10 0RF Hold Instructions: no longer taking Held memantine [Namenda XR] 14 mg capsule,sprinkle,ER 24hr 14 mg PO DAILY Qty: 30 5RF Hold Instructions: Hold Rx Instructions: Begin after completing 1 week course of memantine ER 7 mg daily loperamide 2 MG capsule 2 mg PO Q4H PRN PRN (Reason: Diarrhea) Hold Instructions: Hold Patient Comments: Diarrhea calcium carbonate [Oyster Shell Calcium 500] 500 MG tablet 500 mg PO DAILY@0800 Hold Instructions: Hold Patient Comments: Calcium supplement cholecalciferol (vitamin D3) [Vitamin D3] 1,000 UNIT tablet 2,000 unit PO DAILY Hold Instructions: Hold B-Complex With B-12 1 EACH tablet 1 tab PO DAILY Hold Instructions: Hold famotidine 20 MG tablet 20 mg PO BID 0RF Hold Instructions: c hydrocortisone [Proctozone-HC] 1 APPLIC cream with perineal applicator 1 applic RECTAL TID PRN PRN (Reason: hemmrhoids) Qty: 0 0RF Hold Instructions: Hold Ferrex 150 Plus 150 MG capsule 150 mg PO DAILYCM Qty: 30 0RF Hold Instructions: Hold doxazosin 4 MG tablet 4 mg PO QHS Qty: 30 0RF Hold Instructions: Hold triamterene-hydrochlorothiazid 37.5-25 mg tablet 1 tab PO DAILY Hold Instructions: Hold Patient Comments: TAKE 1 TABLET BY MOUTH DAILY amoxicillin-pot clavulanate 875-125 mg tablet 1 tab PO BID 5 Days Qty: 10 0RF Hold Instructions: Hold Discontinued tramadol 50 MG tablet 50 mg PO Q6H PRN PRN (Reason: MODERATE TO SEVERE PAIN) Qty: 20 0RF Hold Instructions: no longer taking azithromycin [Zithromax] 500 mg tablet 500 mg PO DAILY 4 Days Qty: 4 0RF Referrals / Follow Up: Vivek Godinez DO [Primary Care Provider] - Disposition Disposition (needs filled in before D/C Order can be placed): Hospice in Medical Facility
--- NOTE | 2024-01-15 10:32 | PCM.DC.SUM ---
Providers Date of Admission: 01/14/24 Date of Discharge: 01/15/24 Primary Care Physician: Dr. Vivek Godinez, DO Consultations 01/15/24 06:39 Consult: Hospice / Palliative Care Routine Consulting Provider: [facility] Reason for Consult: comfort care EMERGENT Consult: No MD Notified: Yes Date Notified: 01/15/24 Time Notified: 06:39 Method of Notification: Verbal Reason For Visit: AE CHF, NSTEMI AND ACUTE RESPIRATORY FAILURE WITH Diagnosis Discharge Diagnosis (1) Non-ST elevated myocardial infarction (non-STEMI): Status: Acute Code(s): I21.4 - Non-ST elevation (NSTEMI) myocardial infarction (2) Acute exacerbation of congestive heart failure: Status: Chronic Code(s): I50.9 - Heart failure, unspecified Plan This is a 88-year-old female came to ED with abdominal pain, nausea and vomiting. Upon ED arrival patient was diaphoretic pale and discomfort. She also has dementia on thiazide. Not on anticoagulant with history of paroxysmal A-fib 1. 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 Nonopacified and distended proximal to distal SMA and branches with calcification at the origin of celiac axis and SMA. Contrast blush at the origin of length of 1 cm with moderate calcification and stenosis. Distended small bowel loops with complex intraluminal fluid with mild thickened wall mid to distal and lower abdomen. Open ischemic changes. Small bowel diameter about 3.1 cm. The findings were discussed with the POA of consequences of SMA including ileus obstruction, abdominal distention, necrosis/gangrene and sepsis. Wanted further opinion from surgeon therefore surgeon consulted. Discussed with Dr. Astudillo. Lactic acidosis of 2.2 mmol/L present on admission Patient is n.p.o. status. Hold all oral medications. The patient's daughter seems overwhelming overburdened with with the amount of clinical information of non-STEMI, CHF exacerbation and SMA occlusion. Patient is clinically not in a good health or physically and physiologically optimal health and functional capacity is <4MET. After discussion with the hospice nurse, patient's POA her daughter decided for inpatient hospice. Patient discharged to inpatient hospice. 2. Non-STEMI evidenced by elevated initial troponin of 181 pg/mL present on admission in elderly chronically demented patient with DNR CC CODE STATUS followed as outpatient by hospice: Doing patient does not complain of chest pain or acute shortness of breath but mainly abdominal symptoms therefore I feel non-STEMI is due to increased cardiac demand with history of heart failure therefore type II. 3. Acute exacerbation of chronic CHF exact type classification and etiology unclear, undetermined: proBNP of 567.8 along with right pleural effusion. Patient is DNR CC, hospice care end-of-life therefore no further workup including echo ordered. 4. Paroxysmal atrial fibrillation; not on Anticoagulation.H&H 11.4/37%. 5. CKD; stage IV -patient baseline creatinine runs around 2.2-2.4. On review of creatinine profile it seems patient creatinine progressively worsening since 2014, worsening 2022 about 2.35. Estimated creatinine clearance around 16 to 17 mL/min 6. Essential hypertension -heart rate and blood pressure high. Sinus tachycardia 122/min blood pressure 136/81 but elevated/High 178/97 in ED. 7. Scientology - 8. IBS; of diarrheal type - 9. GERD - 10. Osteoarthritis; with chronic pain syndrome on as needed tramadol - Discharge medication reconciliation done. Discharge follow-up instructions completed. Discharge process discussed with the patient and all questions were answered to patient's satisfaction. Follow with PCP in 1 to 2 weeks Total time spent, exact 35 minutes on discharge meds reconciliation, examination, coordination of care with nurses and ancillary staff, review of imaging and blood test and discussion with the patient on follow-up instructions. Medications at Discharge Home Medications calcium carbonate (Oyster Shell Calcium 500) 500 mg PO DAILY@0800 09/23/14 loperamide 2 mg capsule 2 mg PO Q4H PRN PRN Diarrhea 09/23/14 vit A 300 mcg-C 200 mg-E 27 mg-lutein 2 mg and minerals tablet (Ocuvite with Lutein) 1 ea PO DAILY 09/23/14 cholecalciferol (vitamin D3) 25 mcg (1,000 unit) tablet (Vitamin D3) 2,000 unit PO DAILY 05/19/15 vitamins B1 2.5 mg-B2 2.5 mg-niacin 5 mg-B12 100 mcg-protease tablet (B-Complex With B-12) 1 tab PO DAILY 05/19/15 famotidine 20 mg tablet 20 mg PO BID 05/24/15 doxazosin 4 mg tablet 4 mg PO QHS URINARY RETENTION ##30 06/08/15 hydrocortisone 2.5 % topical cream with perineal applicator (Proctozone-HC) 1 applic RECTAL TID PRN PRN hemmrhoids ##0 06/08/15 iron aspgl and ps cmplx 150 mg-vit C 50 mg-succinic acid 50 mg capsule (Ferrex) 150 mg (1.5 x 150-50-50 mg) PO DAILYCM ##30 06/08/15 ondansetron 4 mg disintegrating tablet 4 mg PO Q8H PRN PRN Nausea ##10 06/08/15 memantine 14 mg capsule sprinkle,extended release 24hr (Namenda XR) 14 mg PO DAILY #30 ea 02/05/23 triamterene 37.5 mg-hydrochlorothiazide 25 mg tablet 1 tab PO DAILY 02/28/23 amoxicillin 875 mg-potassium clavulanate 125 mg tablet 1 tab PO BID 5 days #10 tabs 03/31/23 Physical Exam Narrative Please see exam finding on the progress note today Weight / BMI Weight Weight: 120 lb 5.958 oz Body Mass Index (BMI) 23.5 ABG / Lab / Microbiology Data 01/14/24 Unknown 01/14/24 Unknown Laboratory: Laboratory Results - last 24 hr 01/14/24 21:00: Lactic Acid 2.2 H* 01/14/24 : WBC 13.4 H, RBC 4.12 L, Hgb 11.4 L, Hct 37.9, MCV 92.0, MCH 27.7, MCHC 30.1 L, RDW Std Deviation 54.1 H, RDW Coeff of Hanh 16.0 H, Plt Count 264, MPV 12.2 H, Immature Gran % (Auto) 0.900, Neut % (Auto) 45.3 L, Lymph % (Auto) 46.6 H, Sutton % (Auto) 5.3, Eos % (Auto) 1.5, Baso % (Auto) 0.4, Absolute Neuts (auto) 6.1, Absolute Lymphs (auto) 6.22 H, Nucleated RBC % 0, Differential Comment SCANNED, Sodium 142, Potassium 4.3, Chloride 116 H, Carbon Dioxide 17.0 L, Anion Gap 9, BUN 68 H, Creatinine 2.44 H, Estim Creat Clear Calc 11.45, Est GFR (MDRD) Af Amer 24 L, Est GFR (MDRD) Non-Af 20 L, BUN/Creatinine Ratio 27.9 H, Glucose 199 H, Calcium 8.7, Total Bilirubin 0.30, AST 31, ALT 43, Alkaline Phosphatase 84, Troponin I High Sens 181 H*, B-Natriuretic Peptide 567.8 H, Total Protein 7.5, Albumin 3.4, Globulin 4.1, Albumin/Globulin Ratio 0.8 L Radiography Diagnostic Testing: Radiology Impression Abdomen/Pelvis CTA 01/14/24 21:25 IMPRESSION: 1. Proximal SMA occlusion. Nonopacified and distended proximal to distal SMA and branches on initial and delayed phase exams. 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 Slight contrast blush at the origin for a length of roughly 1 cm. Moderate calcification and stenosis at the origin. 2. Distended small bowel loops with complex intraluminal fluid. Some mildly thick-walled mid to distal small bowel loops in the lower abdomen. Presumed early ischemic changes. 3. No visible mandeep pneumatosis, mesenteric venous gas or portal venous gas in the liver. 4. Findings consistent with CHF including pulmonary edema, bilateral effusions, cardiomegaly. 5. No free air or free fluid. 6. Scattered stool predominantly in the right colon and in the rectum. Suspicion of early ischemic change throughout most of the transverse colon and descending colon, they are collapsed and questionably slightly thick-walled. 7. No evidence of acute diverticulitis or appendicitis. 8. Faint enhancement in proximal BRIAN segment on early phase exam, it is otherwise not well seen. High-grade apparent calcific stenosis at the origin of the celiac axis but the celiac axis and branches are patent. Electronically Signed: Diamond Uribe MD at 23:56 EDT , ADDENDUM: 01/15/24 0007 IMPRESSION: 1. Proximal SMA occlusion. Nonopacified and distended proximal to distal SMA and branches on initial and delayed phase exams. 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 Slight contrast blush at the origin for a length of roughly 1 cm. Moderate calcification and stenosis at the origin. 2. Distended small bowel loops with complex intraluminal fluid. Some mildly thick-walled mid to distal small bowel loops in the lower abdomen. Presumed early ischemic changes. 3. No visible mandeep pneumatosis, mesenteric venous gas or portal venous gas in the liver. 4. Findings consistent with CHF including pulmonary edema, bilateral effusions, cardiomegaly. 5. No free air or free fluid. 6. Scattered stool predominantly in the right colon and in the rectum. Suspicion of early ischemic change throughout most of the transverse colon and descending colon, they are collapsed and questionably slightly thick-walled. 7. No evidence of acute diverticulitis or appendicitis. 8. Faint enhancement in proximal BRIAN segment on early phase exam, it is otherwise not well seen. High-grade apparent calcific stenosis at the origin of the celiac axis but the celiac axis and branches are patent. N.B. : The above Results were Read Back by Diamond Uribe MD to Kory Sánchez MD, and understanding confirmed on 01/15/2024 00:00:15 (ET). Electronically Signed: Diamond Uribe MD at 23:56 EDT , Chest X-Ray 01/14/24 21:31 IMPRESSION: Limited by significant overlying artifact. Pulmonary density throughout the right lung especially in the right lung base including small pleural effusion. Electronically Signed: Shane Fallon MD at 22:28 EDT , D/C Instructions Discharge Diet: - (As per hospice care) Weight Bearing Status: Weight bearing as tolerated Call your doctor if you observe: - (Inpatient hospice care.) When: IN 2 WEEKS Meaningful Use Info Meaningful Use Meaningful Use Diagnoses (Choose all that apply): None applicable Ischemic Stroke Statin Dosing Therapy Reference: STATIN DOSE THERAPY REFERENCE: * Patients > 75 years receive moderate or high dose statin therapy. * Patients 75 years or YOUNGER should receive HIGH intensity statin dose unless contraindicated. You will be required to document reason for non-treatment if statin daily dose does not meet guidelines. HIGH DOSE STATIN THERAPY DAILY Atorvastatin > than or = to 40 mg Rosuvastatin > than or = to 20 mg Amlodipine + Atorvastatin > than or = to 2.5/40 mg Ezetimibe + Simvastatin 10/80 mg Simvastatin 80mg Discharge Plan Admission Admit Date/Time: 01/14/24 23:19 Attending Provider: Ludwin Phillips Primary Care Provider: Vivek Godinez Consulting Providers: Walter Vasquez; Walter Villareal; Georgia Ansari; Pattie Tidwell; Melani Godinez [employer]PER [employer] Instructions Additional Instructions / Restrictions: Hold all oral medication as patient is an ileus with likely tubing obstruction. SMA occlusion. Discharge Orders/Prescriptions Prescriptions: Continued Ocuvite with Lutein 1 EACH tablet 1 ea PO DAILY Patient Comments: Supplement ondansetron 4 MG tablet 4 mg PO Q8H PRN PRN (Reason: Nausea) Qty: 10 0RF Hold Instructions: no longer taking Held memantine [Namenda XR] 14 mg capsule,sprinkle,ER 24hr 14 mg PO DAILY Qty: 30 5RF Hold Instructions: Hold Rx Instructions: Begin after completing 1 week course of memantine ER 7 mg daily loperamide 2 MG capsule 2 mg PO Q4H PRN PRN (Reason: Diarrhea) Hold Instructions: Hold Patient Comments: Diarrhea calcium carbonate [Oyster Shell Calcium 500] 500 MG tablet 500 mg PO DAILY@0800 Hold Instructions: Hold Patient Comments: Calcium supplement cholecalciferol (vitamin D3) [Vitamin D3] 1,000 UNIT tablet 2,000 unit PO DAILY Hold Instructions: Hold B-Complex With B-12 1 EACH tablet 1 tab PO DAILY Hold Instructions: Hold famotidine 20 MG tablet 20 mg PO BID 0RF Hold Instructions: c hydrocortisone [Proctozone-HC] 1 APPLIC cream with perineal applicator 1 applic RECTAL TID PRN PRN (Reason: hemmrhoids) Qty: 0 0RF Hold Instructions: Hold Ferrex 150 Plus 150 MG capsule 150 mg PO DAILYCM Qty: 30 0RF Hold Instructions: Hold doxazosin 4 MG tablet 4 mg PO QHS Qty: 30 0RF Hold Instructions: Hold triamterene-hydrochlorothiazid 37.5-25 mg tablet 1 tab PO DAILY Hold Instructions: Hold Patient Comments: TAKE 1 TABLET BY MOUTH DAILY amoxicillin-pot clavulanate 875-125 mg tablet 1 tab PO BID 5 Days Qty: 10 0RF Hold Instructions: Hold Discontinued tramadol 50 MG tablet 50 mg PO Q6H PRN PRN (Reason: MODERATE TO SEVERE PAIN) Qty: 20 0RF Hold Instructions: no longer taking azithromycin [Zithromax] 500 mg tablet 500 mg PO DAILY 4 Days Qty: 4 0RF Referrals / Follow Up: Vivek Godinez DO [Primary Care Provider] - Disposition Disposition (needs filled in before D/C Order can be placed): Hospice in Medical Facility Charges/Coding Visit Charges Inpatient E&M: 54168 Disch Hosp >30min
--- NOTE | 2024-01-15 12:06 | CASEMGMT ---
Moira from Hospice stated family signed Hospice admission papers. Moira also said their mobile unit will pickler helper patient around 2p. SW notified rhit, physician, and RN. Plan[facility]. Jacquelyn SCANLON
--- NOTE | 2024-01-15 14:44 | CHAPLAIN ---
Type of Pastoral Visit ___ Initial Visit ___ Follow-up Visit ___ On-call Visit ___ General Patient Visit ___ Spiritual Assessment ___ Family Conference ___ Bereavement ___ Rapid Response ___ Code Blue _x__ Other (describe below) Pastoral Care Referral From ___ Patient ___ Family ___ Nurse ___ Physician ___ Paint Technician ___ Supervisor Refining _x__ Other (describe below) Sacrament/Intervention _x__ Active listening ___ Anointing ___ Presybeterian ___ Bereavement ___ Communion ___ [place] exploration ___ ___ Life review ___ Prayer ___ Reconciliation ___ Sacrament of Sick _x__ Supportive presence ___ Wedding ___ Other (describe below) Pastoral Comments this square shear operator became aware of the white cart in front of room which indicates pending ; staff member spoke to this square shear operator that pt was to be transferred to hospice unit; there were several visitors at the bedside of this patient and square shear operator offered support; patient is moaning quietly and mumbles some words; family members introduce themselves and that in fact pt is to be moved to hospice inpatient unit today; offer of support given and family welcomes that with the statement that we are Jehovah Witnesses and have our support here from the elders; affirmed family in their choices and asked how this square shear operator could be supportive further;
== END 2024-01-15 14:00 | disposition hospice, inpatient (51) | DRG 280 ==
LOC: ED 22:35 → PCU 01-15 00:03
PROVIDERS: Admitting Provider Internal Medicine; Emergency Provider Emergency Medicine; PCP Family Medicine; Visit Provider Internal Medicine
DX: I13.0 Hypertensive heart and chronic kidney disease with heart failure and stage 1 through stage 4 chronic kidney disease, or unspecified chronic kidney disease (principal); I21.A1 Myocardial infarction type 2; J96.01 Acute respiratory failure with hypoxia; K55.069 Acute infarction of intestine, part and extent unspecified; N18.4 Chronic kidney disease, stage 4 (severe); K56.699 Other intestinal obstruction unspecified as to partial versus complete obstruction; E87.20 Acidosis, unspecified; F03.90 Unspecified dementia, unspecified severity, without behavioral disturbance, psychotic disturbance, mood disturbance, and anxiety; I50.9 Heart failure, unspecified; I48.0 Paroxysmal atrial fibrillation; M19.90 Unspecified osteoarthritis, unspecified site; K21.9 Gastro-esophageal reflux disease without esophagitis; K58.0 Irritable bowel syndrome with diarrhea; G89.4 Chronic pain syndrome; Z66 Do not resuscitate; Z51.5 Encounter for palliative care
CPT/HCPCS: 71045; 74174; 80053; 83605; 83880; 84484; 85025; 93005; 99285; Q9967; A4216; J1940; J2405